=== PATIENT | female | born 1935 | race Caucasian/White ===

== ENCOUNTER → 2017-07-06 | Outpatient (CLI) | payer MEDICARE ==
[2017-07-06 16:43] LABS: Basophils % (A) 0 %; CH 31.6; CHCM 33.8; Eosinophils # (A) 0.4 k/uL (0-0.7); Eosinophils % (A) 5 %; HCT 45.1 % (34.0-46.0); HDW 2.91; HGB 15.3 gm/dL (11.4-16.0); Luc # (Auto) 0.13; Luc % (Auto) 2; Lymphocytes # (A) 2.5 k/uL (1.0-4.8); Lymphocytes % (A) 31 %; MCH 31.9 pg (25.0-35.0); MCV 94.1 fL (80.0-100.0); Mean Platelet Volume 7.2; Monocytes # (A) 0.4 k/uL (0-1.0); Monocytes % (A) 5 %; Neutrophils # (A) 4.8 k/uL (1.3-7.7); Neutrophils % (A) 58 %; RBC 4.79 m/uL (3.80-5.40); RDW 13.5 % (11.5-15.5); WBC 8.3 k/uL (3.8-10.6); WBC (Perox) 8.11
[2017-07-06 16:50] LABS: ALT 33 U/L (9-52); AST 24 U/L (14-36); Alkaline Phosphatase 88 U/L (38-126); Anion Gap 10 mmol/L; Blood Urea Nitrogen 29 mg/dL (7-17); Calcium 9.6 mg/dL (8.4-10.2); Carbon Dioxide 23 mmol/L (22-30); Chloride 105 mmol/L (98-107); Glucose 94 mg/dL (74-99); Non-African American GFR(MDRD) 53 (>60 ml/min/1.73 sqM); Sodium 138 mmol/L (137-145); Total Bilirubin 0.6 mg/dL (0.2-1.3); Total Protein 7.1 g/dL (6.3-8.2)
--- NOTE | 2017-07-06 21:08 | CT ---
EXAMINATION TYPE: CT chest w con DATE OF EXAM: 07/06/2017 COMPARISON: Chest radiograph dated 05/19/2015 HISTORY: Recent pneumonia. Abnormal cxr. CT DLP: 578.00 mGycm. Automated Exposure Control for Dose Reduction was Utilized. TECHNIQUE: CT scan of the thorax is performed following with IV Contrast, patient injected with 80 m L of Visipaque 320. FINDINGS: LUNGS: The lungs are grossly clear, there is no concerning parenchymal mass or nodule identified. T here is no pleural effusion or pneumothorax seen. The tracheobronchial tree is patent. No evidence o f ascending thoracic aortic aneurysm or descending thoracic aortic aneurysm. No evidence of pulmonary embolus. Minimal calcific atheromatous changes are seen of the thoracic aorta. Moderate centrilobular emphysematous changes are most pronounced at the lung apices. Scattered pleura l parenchymal linear scarring is seen as well as focal noncalcified right middle lobe pulmonary nodul e measuring 4 mm on series 4 image 34. MEDIASTINUM: There are no greater than 1 cm hilar or mediastin al lymph nodes. No pericardial effusion is seen. OTHER: Main pulmonary artery is mildly enlarged measuring up to 3.1 cm. Splenules are seen in adjacen t to the [place] spleen. Numerous low-density hepatic lesions are present, some of which are compatibl e with simple cysts, and others which are too small to accurately characterize. The largest of these is seen in segment 8 and measures 2.2 cm. Additionally there is a questionable area of hypoattenuation within the pancreatic uncinate process, partially visualized on the last image in the [id number] series 3 image 58. This appears to be flu id attenuated but is incompletely characterized. There is multilevel degenerative disc disease with numerous Schmorl's nodes of the thoracic spine and an exaggerated thoracic kyphosis. IMPRESSION: 1. No focal consolidation to suggest pneumonia. Moderate centrilobular emphysematous changes are appr eciated as well as multifocal pleural parenchymal scarring. 2. Solitary 3 mm solid pulmonary nodule. The Fleischner Society recommendations of 2017, consensus gu idelines recommend optional CT in 12 months for further evaluation. 3. Partially visualized pancreatic uncinate process lesion, which appears cystic but incompletely jessica racterized. Dynamic enhanced CT or MR (pancreatic mass protocol) is recommended for further character ization. 4. Numerous hepatic cysts and smaller lesions that are too small to accurately characterize.
== END | disposition home or self-care (01) ==
LOC: RADCTMAIN 15:57
PROVIDERS: ATTEND Family Medicine
DX: J43.2 Centrilobular emphysema (principal); R91.1 Solitary pulmonary nodule; I48.91 Unspecified atrial fibrillation; F33.1 Major depressive disorder, recurrent, moderate
CPT/HCPCS: 80053; 85025; 71260; 36415; Q9967

== ENCOUNTER → 2017-07-27 | Outpatient (CLI) | payer MEDICARE ==
[2017-07-27 09:04] LABS: Blood Urea Nitrogen 29 mg/dL (7-17); Non-African American GFR(MDRD) 53 (>60 ml/min/1.73 sqM)
--- NOTE | 2017-07-27 10:51 | CT ---
EXAMINATION TYPE: CT abdomen wo/w con DATE OF EXAM: 07/27/2017 COMPARISON: Correlation CT chest 07/06/2017 and ultrasound liver 07/23/2015 HISTORY: 82-year-old female with abnormal findings TECHNIQUE: Contiguous axial scanning of the abdomen and pelvis before and after administration of 100 ml Omnipaque 300 IV contrast. Coronal/sagittal reconstructions performed. CT DLP: 1258.60 mGycm Automated exposure control for dose reduction was used. FINDINGS: There is some type of technical error and the initial postcontrast series was performed very early. C ontrast is seen within the pulmonary vasculature and in the heart. The second postcontrast series whi ch was measured to be venous phase shows arterial opacification. Heart is upper limits of normal in size without pericardial effusion. Strandy areas of atelectasis an d/or scarring at the lung bases without pleural effusion. Redemonstrated multiple hypodense lesions within the liver, largest measuring 2.3 cm suggestive of cy sts. Some are too small for accurate CT characterization. Gallbladder, adrenal glands, and left kidney appear within normal limits. There is a 1.7 cm rounded a est[place] of fat density within the mid to lower pole right kidney that could represent an AML. Inferior sp lenules are present as well as a punctate calcification in the spleen that could represent a calcifie d granuloma. Confirmed is a 1.4 cm ovoid hypodense lesion in the pancreatic uncinate process. No obvious suspiciou s nodularity though there are technical limitations due to the presence of only the arterial postcont rast series. No dilated small bowel, free fluid, or free air. No mesenteric or retroperitoneal lymphadenopathy. Sc attered mild stool burden. Mild sigmoid diverticulosis. Bladder is urine distended. Uterus surgically absent. No abnormal fluid collection in the pelvis. Nei ther ovary is visualized. Bones: Degenerative changes at the pubic symphysis and mild degenerative changes at the hips. Additio nal degenerative changes mid to lower lumbar spine and within the lower thoracic spine as well. No os seous destructive process. IMPRESSION: 1. SOME TECHNICAL LIMITATIONS IN THE EXAM DUE TO THE PRESENCE OF NONCONTRAST AND ARTERIAL PHASE IMAGI NG ONLY. 2. A 1.4 CM HYPODENSE LESION IN THE UNCINATE PROCESS. SOME FAVORED DIFFERENTIAL CONSIDERATIONS INCLUD E A DILATED SIDE BRANCH RADICLE, SEQUELA OF PRIOR PANCREATITIS, AND an IPMN. RECOMMEND THREE-MONTH FO LLOW-UP PANCREAS MRI TO ASSESS STABILITY AND FOR FURTHER TISSUE CHARACTERIZATION. 3. A 1.7 CM FAT DENSITY LESION IN THE RIGHT KIDNEY COULD REPRESENT A BENIGN AML.
== END | disposition home or self-care (01) ==
LOC: RADCTMAIN 08:09
PROVIDERS: ATTEND Family Medicine
DX: N28.89 Other specified disorders of kidney and ureter (principal)
CPT/HCPCS: 82565; 84520; 74170; 36415; Q9967

== ENCOUNTER → 2017-07-28 | Outpatient (CLI) | payer MEDICARE | END | disposition home or self-care (01) | LOC: CPPFTMAIN 10:18 | PROVIDERS: ATTEND Family Medicine | DX: J98.8 Other specified respiratory disorders (principal) | CPT/HCPCS: 94060; 94726; 94729 ==

== ENCOUNTER → 2017-08-15 | Outpatient (CLI) | payer MEDICARE ==
[2017-08-15 11:55] LABS: Blood Urea Nitrogen 26 mg/dL (7-17); Non-African American GFR(MDRD) 52 (>60 ml/min/1.73 sqM)
--- NOTE | 2017-08-15 14:00 | MR ---
EXAMINATION TYPE: MR pancreas wo/w con DATE OF EXAM: 08/15/2017 COMPARISON: CT abdomen July 27, 2017 HISTORY: abnormal findings on ct CONTRAST: Standard multiplanar, multisequence MRI departmental protocol utilizing 7 mL intravenous Gadavist brittany olinium contrast. FINDINGS: PANCREAS: Pancreas is overall normal in size. Duct is visualized but not suspiciously dilated. Corres ponding to area of concern on CT, there is cluster of tiny cystic lesions seen best on coronal image 13 and axial series for one image 16 near the medial aspect of the uncinate process, largest lesion m easures 7 x 4 mm. It is difficult to determine if lesions are within or adjacent to pancreas. This is separate from the pancreatic duct. No additional worrisome solid or cystic masses seen. LIVER/GB/BILIARY SYSTEM: Liver is normal in size. There are lobulated otherwise simple appearing cyst s scattered throughout the liver. No worrisome solid or cystic mass or ductal dilatation is seen. Gal lbladder shows wall thickening upper limits of normal inferiorly otherwise is unremarkable. OTHER: Cardiomegaly is present. There is moderate biatrial dilatation seen. There is bibasilar linear scarring and/or atelectasis redemonstrated. The spleen and both adrenal glands are normal in size. There is prominent lobulated fat lesions centr ally in the right kidney favoring angiomyolipoma redemonstrated. There is no suspicious small or larg e bowel dilatation. There is no concerning abdominal fluid collection seen. No suspicious abdominal a denopathy is noted. There is S-shaped scoliotic curvature redemonstrated. IMPRESSION: Nonspecific cluster of tiny cystic lesions near medial aspect of uncinate process. The le ameena or lesions are of uncertain etiology, favored benign, differential includes pancreatic pseudocys t, side branch IPMN, an cystic pancreatic neoplasm. MRI imaging follow-up in 6-12 months time is advi sed to ensure stability.
== END | disposition home or self-care (01) ==
LOC: RADMRIMAIN 11:17
PROVIDERS: ATTEND Family Medicine
DX: K86.2 Cyst of pancreas (principal)
CPT/HCPCS: 82565; 84520; 74183; A9581

== ENCOUNTER → 2018-04-11 | Outpatient (CLI) | payer MEDICARE ==
--- NOTE | 2018-04-11 16:12 | MR ---
MR pancreas with and without contrast history: Pancreatic cyst, abnormal prior MRI Multiplanar multisequence and postcontrast images through the abdomen with attention to the pancreas following 17 cc Gadavist IV Correlation to prior MR pancreas 08/15/2017 The pancreas shows a similar appearance. Small cystic foci present within the uncinate process are ag ain noted and are multilocular. No abnormal enhancement following contrast. Multiple cystic foci agai n noted within the liver. The kidneys show a similar appearance. Gallbladder, adrenal glands, spleen are stable. There is no re troperitoneal adenopathy. IMPRESSION: Stable exam, no significant interval change.
== END | disposition home or self-care (01) ==
LOC: RADMRIMAIN 14:02
PROVIDERS: ATTEND Internal Medicine Gastroenterology
DX: K86.2 Cyst of pancreas (principal)
CPT/HCPCS: 82565; 84520; 74183; 36415; A9581

== ENCOUNTER → 2018-09-05 | Outpatient (CLI) | payer MEDICARE ==
--- NOTE | 2018-09-05 12:20 | XR ---
EXAMINATION TYPE: XR chest 2V DATE OF EXAM: 09/05/2018 COMPARISON: 05/19/2015 HISTORY: Shortness of breath for 4 months. TECHNIQUE: Frontal and lateral views of the chest are obtained. FINDINGS: There is no focal air space opacity, pleural effusion, or pneumothorax seen. There are si milar areas of multifocal platelike peripheral midlung atelectasis bilaterally or pleural parenchymal scarring in comparison to exam of 2014. The cardiac silhouette size is mildly enlarged. The osseou s structures are intact. There is generalized osseous demineralization. There is some pulmonary hyper inflation and flattening of the diaphragms on the lateral view suggesting a component of underlying e mphysema. IMPRESSION: No acute cardiopulmonary process. Chronic multifocal subsegmental atelectasis or pleural parenchymal scarring dating back to 2014. Radiographic findings suggesting mild underlying emphysema tous change.
[2018-09-05 12:35] LABS: Basophils % (A) 0 %; Eosinophils # (A) 0.2 k/uL (0-0.7); Eosinophils % (A) 3 %; HCT 42.7 % (34.0-46.0); HGB 13.6 gm/dL (11.4-16.0); Lymphocytes % (A) 12 %; MCH 30.1 pg (25.0-35.0); MCHC 31.8 g/dL (31.0-37.0); MCV 94.7 fL (80.0-100.0); Mean Platelet Volume 7.2; Monocytes # (A) 0.4 k/uL (0-1.0); Monocytes % (A) 5 %; Neutrophils # (A) 6.7 k/uL (1.3-7.7); Neutrophils % (A) 80 %; Platelet Count 234 k/uL (150-450); RBC 4.51 m/uL (3.80-5.40); RDW 13.7 % (11.5-15.5); WBC 8.3 k/uL (3.8-10.6)
[2018-09-05 16:15] LABS: Albumin/Globulin Ratio 1.74 (1.20-2.10); Anion Gap 7.6 mmol/L (4.00-12.00); Calcium 9.1 mg/dL (8.7-10.3); Carbon Dioxide 28.4 mmol/L (21.6-31.8); Globulin 2.3 g/dL (2.1-3.7); Potassium 4.4 mmol/L (3.5-5.5); Total Bilirubin 0.9 mg/dL (0.2-1.2); Total Protein 6.3 g/dL (6.2-8.2)
[2018-09-05 16:22] LABS: T4, Free (Free Thyroxine) 1.1 ng/dL (0.80-1.80)
== END | disposition home or self-care (01) ==
LOC: LABWHC1 10:31
PROVIDERS: ATTEND Family Medicine
DX: R06.02 Shortness of breath (principal); G47.09 Other insomnia; R53.83 Other fatigue
CPT/HCPCS: 36415; 71046; 80053; 84439; 84443; 85025

== ENCOUNTER → 2018-11-30 | Day surgery (SDC) | payer MEDICARE ==
[2018-11-28 12:01] VITALS: BMI 30.2
[~2018-11-30] MED LIST: SODIUM CHLORIDE 0.9% 1,000 ML IV ONE; SODIUM CHLORIDE 0.9% 1,000 ML IV SCH; fentaNYL (PF) 50 MCG/ML 2 ML AMP IVP ONE; fentaNYL (PF) 50 MCG/ML 2 ML AMP ONE
[2018-11-30 08:29] VITALS: RESP 18; TEMP 97.6
[2018-11-30] MEDS: BENZOCAINE SPRAY 1 CAN MUCOUS MEM ONE ×2 (08:50→08:55)
[2018-11-30] MEDS: MIDAZOLAM 2 MG/2 ML VIAL IVP ONE ×2 (08:58→09:02)
--- NOTE | 2018-11-30 09:44 | ECHOT ---
TRANSESOPHAGEAL ECHOCARDIOGRAM INDICATION: Valvular heart disease. After obtaining informed consent, transesophageal echocardiogram was performed in left lateral position using an Omni plane probe. Local and IV sedation were obtained using Xylocaine spray, intravenous Versed and fentanyl. Patient tolerated the procedure well without any obvious immediate complications. FINDINGS: 1. Aortic valve is a 3-leaflet valve that appears heavily calcified and shows severe restriction in leaflet mobility. The valve area is around 0.6-0.83 cm. 2. Mitral valve appears anatomically normal. There is moderate central mitral regurgitation noted. Tricuspid valve shows mild to moderate tricuspid regurgitation. Left atrium, right atrium, right ventricle appear enlarged. Left ventricle has normal size, shows diffuse global hypokinesis with LV systolic dysfunction with an ejection fraction of around 45%. Interatrial septum, there is no evidence of [id number] shunt by color-flow Doppler or [id number] shunt by agitated saline contrast study. Aorta shows mild to moderate atherosclerotic changes. CONCLUSION: 1. Severe aortic stenosis involving a heavily calcified 3-leaflet valve that shows severe restriction in leaflet mobility. 2. Moderate mitral regurgitation. 3. Severe pulmonary hypertension. PLAN: I talked to patient's about undergoing aortic valve replacement probably by TAVR. They are going to think over this and get back to me. MMODL / IJN: [id number] /
[2018-11-30 12:14] VITALS: BP 145/78; PULSE 58
== END | disposition home or self-care (01) ==
LOC: CATHCVL 07:50
PROVIDERS: ATTEND Internal Medicine Cardiovascular Disease
DX: I08.0 Rheumatic disorders of both mitral and aortic valves (principal); I27.20 Pulmonary hypertension, unspecified; I70.0 Atherosclerosis of aorta; I48.3 Typical atrial flutter; I10 Essential (primary) hypertension; Z82.49 Family history of ischemic heart disease and other diseases of the circulatory system; Z72.0 Tobacco use; Z88.5 Allergy status to narcotic agent; Z88.3 Allergy status to other anti-infective agents; Z88.0 Allergy status to penicillin; Z88.2 Allergy status to sulfonamides; Z79.01 Long term (current) use of anticoagulants; Z79.82 Long term (current) use of aspirin; Z79.899 Other long term (current) drug therapy
CPT/HCPCS: 93312; 93325; J2250; J3010; 93320

== ENCOUNTER → 2018-12-27 | Day surgery (SDC) | payer MEDICARE ==
[~2018-12-27] MED LIST changes: +ALPRAZolam 0.25 MG TAB PO ONE; +ALPRAZolam 0.25 MG TAB PO PRN; +ALPRAZolam 0.5 MG TAB PO PRN; +ASPIRIN 325 MG TAB PO STA; +ATORVASTATIN 80 MG TAB PO STA; +IOPAMIDOL-370 100ML BTL INJ ONE; +LIDOCAINE 1% INJ 10MG/ML (20 ML MDV) ONE; +LIDOCAINE 1% INJ 10MG/ML (20 ML MDV) SQ ONE; +METOPROLOL TARTRATE 25 MG TAB PO SCH; +METOPROLOL TARTRATE 5 MG/5 ML VIAL IVP ONE; +MIDAZOLAM 2 MG/2 ML VIAL IVP ONE; +NITROGLYCERIN SL TABS 0.4 MG TAB SUBLINGUAL PRN; +RX INFO: IV CONTRAST WAS GIVEN 1 EACH MISC MISCELLANE PRN; +SODIUM CHLORIDE 0.9% 1,000 ML in EMPTY BAG 1 BAG IV ONE
[2018-12-27 08:42] LABS: Basophils % (A) 0 %; Eosinophils # (A) 0.3 k/uL (0-0.7); Eosinophils % (A) 5 %; HCT 44.4 % (34.0-46.0); HGB 14.6 gm/dL (11.4-16.0); Lymphocytes # (A) 1.8 k/uL (1.0-4.8); Lymphocytes % (A) 25 %; MCH 30.2 pg (25.0-35.0); MCHC 32.9 g/dL (31.0-37.0); MCV 91.6 fL (80.0-100.0); Mean Platelet Volume 6.4; Monocytes # (A) 0.4 k/uL (0-1.0); Monocytes % (A) 6 %; Neutrophils # (A) 4.6 k/uL (1.3-7.7); Neutrophils % (A) 64 %; Platelet Count 222 k/uL (150-450); RBC 4.84 m/uL (3.80-5.40); RDW 13.7 % (11.5-15.5); WBC 7.3 k/uL (3.8-10.6)
[2018-12-27 08:53] LABS: Calcium 9.1 mg/dL (8.4-10.2); Potassium 4.9 mmol/L (3.5-5.1)
[2018-12-27 08:56] VITALS: BP 204/112; PULSE 106; RESP 15; TEMP 97.4
--- NOTE | 2018-12-27 11:40 | CC ---
CARDIAC CATHETERIZATION REPORT INDICATION: Aortic stenosis. PROCEDURE NOTE: After obtaining informed consent, left heart catheterization and coronary angiogram were performed via the right femoral artery using standard Randell catheters. Patient tolerated the procedure well without any obvious immediate complication. A femoral angiogram was performed and Angio-Seal was deployed for hemostasis. Patient's blood pressure was somewhat elevated prior to the cath and she received metoprolol 25 mg IV. I will increase the dose of her metoprolol from 25 b.i.d. to 25 t.i.d. on discharge, given the elevated heart rate and elevated blood pressures. Patient received moderate conscious sedation. Total sedation time was 19 minutes. FINDINGS: HEMODYNAMICS: Left ventricular end-diastolic pressure is 18-20 mm. There is a gradient of 45 mm across the valve consistent with severe aortic stenosis. ANGIOGRAPHIC DATA: LEFT MAIN CORONARY ARTERY: Left main coronary artery is a very short vessel. Divides into left anterior descending coronary artery and circumflex coronary artery. LAD and its branches show mild nonobstructive coronary artery disease. Circumflex coronary artery is a large dominant vessel and is free of significant disease. Right coronary artery is a small nondominant vessel and has mild disease. CONCLUSIONS: 1. Left dominant circulation. 2. No evidence of significant obstructive coronary artery disease.. 3. Severe aortic stenosis with a gradient across the aortic valve of about 45 mm. PLAN: I will refer the patient for TAVR. MICHAEL / FANNYN: [id number] /
--- NOTE | 2018-12-27 11:46 | LTR ---
DATE OF SERVICE: 12/27/2018 RE: Mari Arboleda Dear Antwon; I performed cardiac catheterization on Mari Arboleda. A detailed catheterization note is sent to you. Cardiac catheterization revealed severe aortic stenosis with mild nonobstructive coronary artery disease. The patient will be referred for aortic valve replacement. Sincerely, MD MICHAEL Caceres / TOOTIE: [id number] /
== END ==
LOC: CATHCVL 07:49
PROVIDERS: ATTEND Internal Medicine Cardiovascular Disease
DX: I08.0 Rheumatic disorders of both mitral and aortic valves (principal); I25.10 Atherosclerotic heart disease of native coronary artery without angina pectoris; I48.3 Typical atrial flutter; I27.20 Pulmonary hypertension, unspecified; I10 Essential (primary) hypertension; J44.9 Chronic obstructive pulmonary disease, unspecified; M19.90 Unspecified osteoarthritis, unspecified site; Z79.01 Long term (current) use of anticoagulants; Z79.82 Long term (current) use of aspirin; Z79.51 Long term (current) use of inhaled steroids; Z79.899 Other long term (current) drug therapy; Z88.6 Allergy status to analgesic agent; Z88.1 Allergy status to other antibiotic agents; Z88.0 Allergy status to penicillin; Z88.2 Allergy status to sulfonamides; Z82.49 Family history of ischemic heart disease and other diseases of the circulatory system; Z87.891 Personal history of nicotine dependence
CPT/HCPCS: 93458; 80048; 85025; C1760; C1894; C1769; J2250; J2001; J3010; Q9967

== ENCOUNTER → 2019-01-16 | Outpatient (CLI) | payer MEDICARE ==
[2019-01-16 10:27] LABS: Basophils % (A) 1 %; Eosinophils # (A) 0.4 k/uL (0-0.7); Eosinophils % (A) 7 %; HCT 44.1 % (34.0-46.0); HGB 14.1 gm/dL (11.4-16.0); Lymphocytes # (A) 1.2 k/uL (1.0-4.8); Lymphocytes % (A) 21 %; MCHC 32.1 g/dL (31.0-37.0); MCV 93.6 fL (80.0-100.0); Mean Platelet Volume 6.3; Monocytes # (A) 0.3 k/uL (0-1.0); Monocytes % (A) 6 %; Neutrophils # (A) 3.5 k/uL (1.3-7.7); Neutrophils % (A) 64 %; Platelet Count 244 k/uL (150-450); RBC 4.71 m/uL (3.80-5.40); RDW 13.4 % (11.5-15.5); WBC 5.5 k/uL (3.8-10.6)
[2019-01-16 10:32] LABS: INR 1.2 (<1.2); Prothrombin Time 12.4 sec (9.0-12.0)
[2019-01-16 10:38] LABS: Appearance,Urine Clear (Clear); Bilirubin,Urine Negative (Negative); Blood,Urine Negative (Negative); Color,Urine Light Yellow; Glucose,Urine (UA) Negative (Negative); Ketones,Urine Negative (Negative); Leukocyte Esterase,Urine Small (Negative); Mucus,Urine Rare /hpf; Nitrite,Urine Negative (Negative); Protein,Urine Negative (Negative); Specific Gravity,Urine 1.008 (1.001-1.035); Squamous Epithelial Cell,Urine <1 /hpf (0-4); Urobilinogen,Urine <2.0 mg/dL (<2.0); WBC,Urine 3 /hpf (0-5)
[2019-01-16 17:40] LABS: Albumin 4.1 g/dL (3.80-4.90); Albumin/Globulin Ratio 1.64 (1.60-3.17); Anion Gap 5.6 mmol/L (4.00-12.00); Calcium 9.5 mg/dL (8.7-10.3); Carbon Dioxide 28.4 mmol/L (21.6-31.8); Globulin 2.5 g/dL (1.6-3.3); Magnesium 1.9 mg/dL (1.5-2.4); Potassium 4.8 mmol/L (3.5-5.5); Total Bilirubin 0.6 mg/dL (0.3-1.2); Total Protein 6.6 g/dL (6.2-8.2)
== END | disposition home or self-care (01) ==
LOC: LABWHC1 09:50
PROVIDERS: ATTEND Emergency Medicine
DX: I35.0 Nonrheumatic aortic (valve) stenosis (principal); I51.9 Heart disease, unspecified
CPT/HCPCS: 36415; 80053; 81001; 83735; 83880; 85025; 85610

== ENCOUNTER → 2019-06-16 | Outpatient (CLI) | payer MEDICARE ==
--- NOTE | 2019-06-17 22:11 | MR ---
EXAMINATION TYPE: MR pancreas wo/w con DATE OF EXAM: 06/16/2019 COMPARISON: MRI pancreas April 11, 2018 and older study August 15, 2017. CT abdomen July 27, 2017 HISTORY: Cyst of pancreas CONTRAST: Standard multiplanar, multisequence MRI departmental protocol utilizing 7 mL intravenous Gadavist brittany olinium contrast. FINDINGS: Pancreas: Pancreas remains normal in size with cluster of tiny cystic foci seen best coronal image 15 , less well seen on axial images no significant change from recent MRI coronal image 16 stable or les s prominent from older MRI. No suspicious nodularity or enhancement. There is persistent visualizatio n of pancreatic duct unchanged in appearance from prior. No new suspicious masses are evident. Other: Multiple thin-walled cysts are redemonstrated scattered throughout the liver. The gallbladder, spleen, and both adrenal glands remain within normal limits. There is simple appearing thin-walled c yst mid to lower pole of the right kidney axial image 10 redemonstrated without stable. No suspicious bowel dilatation. No concerning abdominal fluid collection or adenopathy. Slight S-shaped scoliotic curvature to the spine with multilevel spurring is redemonstrated. Incidental long cystic duct redemo nstrated. IMPRESSION: Stable nonspecific cluster of tiny cystic lesions medial aspect of uncinate process. Diff erential includes sidebranch IPMN and cystic pancreatic neoplasm. Benign etiology strongly favored gi lalita nearly two-year stability.
== END | disposition home or self-care (01) ==
LOC: RADMRIMAIN 08:27
PROVIDERS: ATTEND Internal Medicine Gastroenterology
DX: K86.2 Cyst of pancreas (principal)
CPT/HCPCS: 74183; A9585

== ENCOUNTER → 2021-05-08 | Outpatient (CLI) | payer MEDICARE ==
--- NOTE | 2021-05-08 12:09 | CT ---
EXAMINATION TYPE: CT brain wo con DATE OF EXAM: 05/08/2021 COMPARISON: None INDICATION: Pt c/o severe head pain for about an hour and a half DLP: 1106 mGycm, Automated exposure control for dose reduction was used. CONTRAST: None CT of the brain is performed utilizing 3 mm thick sections through the posterior fossa and 3 mm thick sections through the remaining calvarium. Study is performed within 24 hours of [facility] to the [facility]. No abnormal hyperdensity is present to suggest an acute intracranial hemorrhage. No mass lesion is evident. Physiologic basal ganglion calcification is present. No acute infarcts are evident. There is mild periventricular white matter hypodensity, likely on the basis of chronic white matter ischemic changes Ventricles and sulci are prominent for the patient age. There may be some diffuse prominence of the basilar artery. Because thickening is within the right maxillary sinus. Remaining paranasal sinuses and mastoid air c ells are clear. IMPRESSIONS: 1. Age-related atrophy with chronic appearing periventricular white matter ischemic changes.
== END | disposition home or self-care (01) ==
LOC: RADCTMAIN 11:04
PROVIDERS: ATTEND Family Medicine
DX: I67.82 Cerebral ischemia (principal)
CPT/HCPCS: 70450

== ENCOUNTER 2024-02-02 14:59 | Inpatient (IN) | payer MEDICARE ==
--- NOTE | 2024-02-02 15:34 | ED ---
General Adult HPI - General Chief complaint: GI Bleed Stated complaint: rectal bleeding Time Seen by Provider: 02/02/24 15:15 Source: patient, RN notes reviewed, old records reviewed Mode of arrival: ambulatory Limitations: no limitations - History of Present Illness Initial comments: This is an 88-year-old female who presents to the emergency department stating on Tuesday she felt just fine and on Tuesday she started feeling very weak and tired and started having black stools. Patient states she is on Eliquis because she has a valve replacement. Patient states the tiredness continues she saw her doctor today and her doctor sent her in to be evaluated. Patient states she continues to have black stools. Patient denies any abdominal pain patient Nu[place] any back pain patient is chest pain. Patient states she does feel little short of breath and feels more fatigued than normal. - Related Data Home Medications Medication Instructions Recorded Confirmed Aspirin 81 mg PO HS 05/21/15 02/02/24 Apixaban [Eliquis] 5 mg PO BID 02/02/24 02/02/24 Immunity Probiotic 1 tab PO DAILY 02/02/24 02/02/24 Metoprolol Tartrate [Lopressor] 25 mg PO BID 02/02/24 02/02/24 Multivitamins, Thera [Multivitamin 1 tab PO DAILY 02/02/24 02/02/24 (formulary)] Propylene Glycol [Systane Complete] 1 drop BOTH EYES HS 02/02/24 02/02/24 Vitamin B-12 (Unknown Strength) 1 dose PO HS 02/02/24 02/02/24 Allergies Allergy/AdvReac Type Severity Reaction Status Date / Time doxycycline Allergy Severe tongue Verified 02/02/24 18:06 swelling and SOB alatrofloxacin mesylate Allergy Rash/Hives Verified 02/02/24 18:06 [From Trovan] clarithromycin [From Biaxin] Allergy genital Verified 02/02/24 18:06 swelling and irritation codeine Allergy Rash/Hives Verified 02/02/24 18:06 etodolac Allergy Unknown Verified 02/02/24 18:06 gatifloxacin [From Tequin] Allergy Rash/Hives Verified 02/02/24 18:06 levofloxacin [From Levaquin] Allergy Rash/Hives Verified 02/02/24 18:06 Penicillins Allergy Rash/Hives Verified 02/02/24 18:06 Sulfa (Sulfonamide Allergy "very high Verified 02/02/24 18:06 Antibiotics) fever" trovafloxacin mesylate Allergy Rash/Hives Verified 02/02/24 18:06 [From Michael] Review of Systems ROS Statement: Those systems with pertinent positive or pertinent negative responses have been documented in the HPI. ROS Other: All systems not noted in ROS Statement are negative. Past Medical History Past Medical History: Cancer Additional Past Medical History / Comment(s): CURRENT:shortness of breath with activity. SEE DR. [facility]ALL'S H & P FOR CARDIOVASCULAR HSX. 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, glaucoma rt eye, colitis, shingles, skin cancer History of Any Multi-Drug Resistant Organisms: None Reported Past Surgical History: Back Surgery, Orthopedic Surgery Additional Past Surgical History / Comment(s): SX: rt eye retinal repair and laser surgery for glaucoma, rt foot spur sx, rt elbow, and lety thumb surgeries, neck surgery to remove salivary gland, laminectomy(lumbar) Past Anesthesia/Blood Transfusion Reactions: No Reported Reaction Past Psychological History: No Psychological Hx Reported Past Alcohol Use History: Rare Past Drug Use History: None Reported - Past Family History Mother Family Medical History: Cancer General Exam - General Exam Comments Initial Comments: GENERAL: Patient is well-developed and well-nourished. Patient is nontoxic and well- hydrated and is in no acute distress. ENT: Neck is soft and supple. No significant lymphadenopathy is noted. Oropharynx is clear. Moist mucous membranes. Neck has full range of motion without eliciting any pain. EYES: The sclera were anicteric and conjunctiva were pink and moist. Extraocular movements were intact and pupils were equal round and reactive to light. Eyelids were unremarkable. PULMONARY: Unlabored respirations. Good breath sounds bilaterally. No audible rales rhonchi or wheezing was noted. CARDIOVASCULAR: There is a regular rate and rhythm without any murmurs gallops or rubs. ABDOMEN: Soft and nontender with normal bowel sounds. SKIN: Skin is clear with no lesions or rashes and otherwise unremarkable. NEUROLOGIC: Patient is alert and oriented x3. Cranial nerves II through XII are grossly intact. Motor and sensory are also intact. Normal speech, volume and content. Symmetrical smile. MUSCULOSKELETAL: Normal extremities with adequate strength and full range of motion. No lower extremity swelling or edema. No calf tenderness. LYMPHATICS: No significant lymphadenopathy is noted PSYCHIATRIC: Normal psychiatric evaluation. Limitations: no limitations Course Vital Signs 02/02/24 15:05 Temperature 97.4 F L Pulse Rate 59 L Respiratory 16 Rate Blood Pressure 154/105 O2 Sat by Pulse 100 Oximetry Medical Decision Making - Medical Decision Making Was pt. sent in by a medical professional or institution (, GRADY, CURBSTONE SETTER, urgent care, hospital, or senior care...) When possible be specific @ -Patient was sent in by the primary medical care doctor Did you speak to anyone other than the patient for history (EMS, parent, family, police, friend...)? What history was obtained from this source @ -Son gave quite a bit of the history Did you review nursing and triage notes (agree or disagree)? Why? @ -I reviewed and agree with nursing and triage notes Were old charts reviewed (outside hosp., previous admission, EMS record, old EKG, old radiological studies, urgent care reports/EKG's, senior care records)? Report findings @ -I reviewed prior charts and prior lab work on this patient Differential Diagnosis (chest pain, altered mental status, abdominal pain women, abdominal pain men, vaginal bleeding, weakness, fever, dyspnea, syncope, headache, dizziness, GI bleed, back pain, seizure, CVA, palpatations, mental health, musculoskeletal)? @ -Differential GI Bleed: Esophageal varices, aortoenteric fistula, Lauren-Chapa, gastritis, peptic ulcer disease, diverticulosis, inflammatory bowel disease, hemorrhoids, fissure, colitis, malignancy, Meckels diverticulum, this is not meant to be an all- inclusive list. EKG interpreted by me (3pts min.). @ -As above X-rays interpreted by me (1pt min.). @ -Chest x-ray showed no acute abnormality CT interpreted by me (1pt min.). @ -None done U/S interpreted by me (1pt. min.). @ -None done What testing was considered but not performed or refused? (CT, X-rays, U/S, labs)? Why? @ -None What meds were considered but not given or refused? Why? @ -None Did you discuss the management of the patient with other professionals (professionals i.e. , GRADY, CURBSTONE SETTER, lab, RT, psych nurse, high school social studies tutor, supervisor fruit grading, teacher, gifts officer, case management assistant)? Give summary @ -I spoke with Dr. John he agreed to admit the patient admitted the patient I wrote admitting orders Was smoking cessation discussed for >3mins.? @ -No Was critical care preformed (if so, how long)? @ -No Were there social determinants of health that impacted care today? How? (Homelessness, low income, unemployed, alcoholism, drug addiction, transportation, low edu. Level, literacy, decrease access to med. care, halfway, rehab)? @ -No Was there de-escalation of care discussed even if they declined (Discuss DNR or withdrawal of care, Hospice)? DNR status @ -No What co-morbidities impacted this encounter? (DM, HTN, Smoking, COPD, CAD, Cancer, CVA, ARF, Chemo, Hep., AIDS, mental health diagnosis, sleep apnea, morbid obesity)? @ -None Was patient admitted / discharged? Hospital course, mention meds given and route, prescriptions, significant lab abnormalities, going to OR and other pertinent info. @ -Patient's hemoglobin was 8.7 which was considerably lower than it had been in the past. I will repeat CBCs when patient is admitted. I spoke with Dr. John he agreed to admit the patient. Patient also was somewhat dehydrated so I did give the patient some IV fluids. Patient's troponin was mildly elevated so I tracked troponin on the patient. Undiagnosed new problem with uncertain prognosis? @ -No Drug Therapy requiring intensive monitoring for toxicity (Heparin, Nitro, Insulin, Cardizem)? @ -No Were any procedures done? @ -No Diagnosis/symptom? @ -GI bleed Acute, or Chronic, or Acute on Chronic? @ -Acute Uncomplicated (without systemic symptoms) or Complicated (systemic symptoms)? @ -Complicated Side effects of treatment? @ -No Exacerbation, Progression, or Severe Exacerbation? @ -No Poses a threat to life or bodily function? How? (Chest pain, [place], [place], pneumonia, PE, COPD, DKA, ARF, appy, cholecystitis, CVA, Diverticulitis, Homicidal, Suicidal, threat to staff... and all critical care pts) @ -Yes this could lead to severe anemia and hypoxia and endorgan dysfunction Diagnosis/symptom? @ -Elevated troponin Acute, or Chronic, or Acute on Chronic? @ -Acute Uncomplicated (without systemic symptoms) or Complicated (systemic symptoms)? @ -Complicated Side effects of treatment? @ -None Exacerbation, Progression, or Severe Exacerbation] @ -No Poses a threat to life or bodily function? @ -Yes this could lead to an [place] and endorgan dysfunction Diagnosis/symptom? @ -Mild dehydration Acute, or Chronic, or Acute on Chronic? @ -Acute Uncomplicated (without systemic symptoms) or Complicated (systemic symptoms)? @ -Uncomplicated Side effects of treatment? @ -None Exacerbation, Progression, or Severe Exacerbation] @ -No Poses a threat to life or bodily function? @ -No Diagnosis/symptom? @ -Anemia Acute, or Chronic, or Acute on Chronic? @ -Acute Uncomplicated (without systemic symptoms) or Complicated (systemic symptoms)? @ -Complicated Side effects of treatment? @ -None Exacerbation, Progression, or Severe Exacerbation] @ -No Poses a threat to life or bodily function? @ -Yes this can lead to hypoxia and endorgan dysfunction - Lab Data Result diagrams: 02/02/24 15:40 02/02/24 15:40 Lab Results 02/02/24 02/02/24 02/02/24 Range/Units 15:40 15:40 15:40 WBC 9.2 (3.8-10.6) k/uL RBC 2.84 L (3.80-5.40) m/uL Hgb 8.7 L (11.4-16.0) gm/dL Hct 27.1 L (34.0-46.0) % MCV 95.3 (80.0-100.0) fL MCH 30.7 (25.0-35.0) pg MCHC 32.2 (31.0-37.0) g/dL RDW 14.0 (11.5-15.5) % Plt Count 210 (150-450) k/uL MPV 8.1 Neutrophils % 73 % Lymphocytes % 22 % Monocytes % 3 % Eosinophils % 1 % Basophils % 0 % Neutrophils # 6.7 (1.3-7.7) k/uL Lymphocytes # 2.0 (1.0-4.8) k/uL Monocytes # 0.3 (0-1.0) k/uL Eosinophils # 0.1 (0-0.7) k/uL Basophils # 0.0 (0-0.2) k/uL PT 12.4 (10.0-12.5) sec INR 1.2 H (<1.2) APTT 24.8 (22.0-30.0) sec Sodium 142 (137-145) mmol/L Potassium 4.5 (3.5-5.1) mmol/L Chloride 113 H (98-107) mmol/L Carbon Dioxide 18 L (22-30) mmol/L Anion Gap 11 mmol/L BUN 53 H (7-17) mg/dL Creatinine 0.88 (0.52-1.04) mg/dL Est GFR (CKD-EPI)AfAm 68 (>60 ml/min/1.73 sqM) Est GFR (CKD-EPI)NonAf 59 (>60 ml/min/1.73 sqM) Glucose 106 H (74-99) mg/dL Plasma Lactic Acid Enrique (0.7-2.0) mmol/L Calcium 9.3 (8.4-10.2) mg/dL Magnesium 2.1 (1.6-2.3) mg/dL Total Bilirubin 0.8 (0.2-1.3) mg/dL AST 42 H (14-36) U/L ALT 19 (4-34) U/L Alkaline Phosphatase 56 (38-126) U/L Troponin I (0.000-0.034) ng/mL NT-Pro-B Natriuret Pep 2350 pg/mL Total Protein 7.0 (6.3-8.2) g/dL Albumin 4.3 (3.5-5.0) g/dL Blood Type Blood Type Recheck Bld Type Recheck Status Antibody Screen Spec Expiration Date 02/02/24 02/02/24 02/02/24 Range/Units 15:40 15:40 16:41 WBC (3.8-10.6) k/uL RBC (3.80-5.40) m/uL Hgb (11.4-16.0) gm/dL Hct (34.0-46.0) % MCV (80.0-100.0) fL MCH (25.0-35.0) pg MCHC (31.0-37.0) g/dL RDW (11.5-15.5) % Plt Count (150-450) k/uL MPV Neutrophils % % Lymphocytes % % Monocytes % % Eosinophils % % Basophils % % Neutrophils # (1.3-7.7) k/uL Lymphocytes # (1.0-4.8) k/uL Monocytes # (0-1.0) k/uL Eosinophils # (0-0.7) k/uL Basophils # (0-0.2) k/uL PT (10.0-12.5) sec INR (<1.2) APTT (22.0-30.0) sec Sodium (137-145) mmol/L Potassium (3.5-5.1) mmol/L Chloride (98-107) mmol/L Carbon Dioxide (22-30) mmol/L Anion Gap mmol/L BUN (7-17) mg/dL Creatinine (0.52-1.04) mg/dL Est GFR (CKD-EPI)AfAm (>60 ml/min/1.73 sqM) Est GFR (CKD-EPI)NonAf (>60 ml/min/1.73 sqM) Glucose (74-99) mg/dL Plasma Lactic Acid Enrique 3.2 H* (0.7-2.0) mmol/L Calcium (8.4-10.2) mg/dL Magnesium (1.6-2.3) mg/dL Total Bilirubin (0.2-1.3) mg/dL AST (14-36) U/L ALT (4-34) U/L Alkaline Phosphatase (38-126) U/L Troponin I 0.097 H* (0.000-0.034) ng/mL NT-Pro-B Natriuret Pep pg/mL Total Protein (6.3-8.2) g/dL Albumin (3.5-5.0) g/dL Blood Type O Positive Blood Type Recheck O Pos Bld Type Recheck Status No Antibody Screen NEGATIVE Spec Expiration Date 02/05/20242340 Disposition Clinical Impression: GI bleed, Dehydration, Elevated troponin, Anemia Disposition: ADMITTED IP TO THIS [facility] Referrals: Antwon Olson MD [Primary Care Provider] - 1-2 days
[2024-02-02 15:58] LABS: Basophils % (A) 0 %; Eosinophils # (A) 0.1 k/uL (0-0.7); Eosinophils % (A) 1 %; HCT 27.1 % (34.0-46.0); HGB 8.7 gm/dL (11.4-16.0); Lymphocytes % (A) 22 %; MCH 30.7 pg (25.0-35.0); MCHC 32.2 g/dL (31.0-37.0); MCV 95.3 fL (80.0-100.0); Mean Platelet Volume 8.1; Monocytes # (A) 0.3 k/uL (0-1.0); Monocytes % (A) 3 %; Neutrophils # (A) 6.7 k/uL (1.3-7.7); Neutrophils % (A) 73 %; Platelet Count 210 k/uL (150-450); RBC 2.84 m/uL (3.80-5.40); WBC 9.2 k/uL (3.8-10.6)
[2024-02-02 16:21] LABS: ALT 19 U/L (4-34); African American GFR (CKD) 68 (>60 ml/min/1.73 sqM); Albumin 4.3 g/dL (3.5-5.0); Anion Gap 11 mmol/L; Blood Urea Nitrogen 53 mg/dL (7-17); Calcium 9.3 mg/dL (8.4-10.2); Carbon Dioxide 18 mmol/L (22-30); Chloride 113 mmol/L (98-107); Glucose 106 mg/dL (74-99); Non-African American GFR(CKD) 59 (>60 ml/min/1.73 sqM); Sodium 142 mmol/L (137-145); Total Bilirubin 0.8 mg/dL (0.2-1.3)
[2024-02-02 16:22] LABS: INR 1.2 (<1.2); Partial Thromboplastin Time 24.8 sec (22.0-30.0); Prothrombin Time 12.4 sec (10.0-12.5)
[2024-02-02 16:31] LABS: NT-Pro-B-Type Natriuretic Pept 2350 pg/mL
[2024-02-02 16:39] LABS: AST 42 U/L (14-36); Alkaline Phosphatase 56 U/L (38-126); Magnesium 2.1 mg/dL (1.6-2.3); Potassium 4.5 mmol/L (3.5-5.1)
--- NOTE | 2024-02-02 16:45 | XR ---
EXAMINATION: XR chest 2V: 02/02/2024 4:12 PM CLINICAL INDICATION: pain TECHNIQUE: Departmental protocol COMPARISON: 09/05/2018 FINDINGS: The overlying soft tissues are prominent. There are some nonspecific scattered linear shadows but no definite acute pulmonary process. The pleural spaces are negative. The cardiac silhouette appears mildly enlarged, unchanged. Since the prior study TAVR has been placed . The skeletal structures and soft tissues are negative for acute findings. IMPRESSION: No definite acute radiographic process.
[2024-02-02] MEDS: SODIUM CHLORIDE 0.9% 1,000 ML IV ONE (19:08)
[2024-02-02 19:41] LABS: Basophils % (A) 0 %; Eosinophils # (A) 0.1 k/uL (0-0.7); Eosinophils % (A) 2 %; HCT 25.7 % (34.0-46.0); HGB 8.4 gm/dL (11.4-16.0); Lymphocytes # (A) 1.8 k/uL (1.0-4.8); Lymphocytes % (A) 25 %; MCH 30.9 pg (25.0-35.0); MCHC 32.6 g/dL (31.0-37.0); MCV 94.9 fL (80.0-100.0); Mean Platelet Volume 8.4; Monocytes # (A) 0.3 k/uL (0-1.0); Monocytes % (A) 4 %; Neutrophils # (A) 4.9 k/uL (1.3-7.7); Neutrophils % (A) 68 %; Platelet Count 187 k/uL (150-450); RBC 2.71 m/uL (3.80-5.40); RDW 14.1 % (11.5-15.5); WBC 7.2 k/uL (3.8-10.6)
[2024-02-03 02:56] LABS: Basophils % (A) 0 %; Eosinophils # (A) 0.1 k/uL (0-0.7); Eosinophils % (A) 2 %; HCT 22.7 % (34.0-46.0); HGB 7.3 gm/dL (11.4-16.0); Lymphocytes # (A) 1.8 k/uL (1.0-4.8); Lymphocytes % (A) 30 %; MCH 30.8 pg (25.0-35.0); MCHC 32.1 g/dL (31.0-37.0); MCV 96.2 fL (80.0-100.0); Mean Platelet Volume 9.3; Monocytes # (A) 0.3 k/uL (0-1.0); Monocytes % (A) 5 %; Neutrophils # (A) 3.7 k/uL (1.3-7.7); Neutrophils % (A) 62 %; Platelet Count 161 k/uL (150-450); RBC 2.36 m/uL (3.80-5.40); RDW 14.2 % (11.5-15.5)
--- NOTE | 2024-02-03 11:42 | P.CRDCN ---
History of Present Illness History of present illness: HISTORY OF PRESENT ILLNESS: This is a 88-year-old female with a past medical history significant for valvular heart disease with previous TAVR, atrial fibrillation, nonischemic cardiomyopathy, pulmonary hypertension and hypertension. Patient follows in the office with Dr. Covington. We have been asked to see the patient in consultation for elevated troponins. Patient examined at the bedside. Patient has been having black stools for 2 days. She is anticoagulated on an outpatient basis with Eliquis. Also was prescribed a baby aspirin on an outpatient basis. She denies any abdominal pain at the time of examination. She does report having some epigastric pain prior to coming to the hospital which was relieved by rubbing her abdomen. She denies any history of ulcers in the past. She does report she has been taking Motrin PM at night recently to help her sleep. DIAGNOSTICS: - EKG reveals atrial fibrillation with controlled ventricular rate. - Chest xray negative for acute process - Laboratory data: WBC 6.0. Hemoglobin 7.6. Platelet count 161. Sodium 142. Potassium 4.5. BUN 53. Creatinine 0.88. Lactic acid 3.2. Repeat 1.4. proBNP 2350. Troponin 0.0697. 0.112. 0.086. - Current home cardiac medications include Eliquis 5 mg twice a day, aspirin 81 mg daily, metoprolol tartrate 25 mg twice a day - Cardiac catheterization history: obtained in December 2018 revealing normal coronary arteries - Most recent echocardiogram in November 2023 revealing ejection fraction 45%, moderate TR, moderate pulmonary hypertension, moderate to severe MR, and prosthetic aortic valve REVIEW OF SYSTEMS: At the time of my exam: CONSTITUTIONAL: Denies fever or chills. HEENT: Denies blurred vision, vision changes, or eye pain. Denies hemoptysis CARDIOVASCULAR: Denies chest pain. Denies orthopnea. Denies PND. Denies palpitations RESPIRATORY: Denies shortness of breath. GASTROINTESTINAL: Denies abdominal pain. Denies nausea or vomiting. HEMATOLOGIC: Denies bleeding disorders. GENITOURINARY: Denies any blood in urine. SKIN: Denies pruitis. Denies rash. PHYSICAL EXAM: VITAL SIGNS: Reviewed. GENERAL: Well-developed in no acute distress. HEENT: Head is normocephalic. Pupils are equal, round. Sclerae anicteric. Mucous membranes of the mouth are moist. Neck supple. No JVD or thyromegaly LUNGS: Respirations even and unlabored. Lungs essentially clear to auscultation bilaterally. HEART: Irregular rate and rhythm. S1 and S2 heard. ABDOMEN: Soft. Nondistended. Nontender. EXTREMITIES: Normal range of motion. No clubbing or cyanosis. Peripheral pulses intact. No lower extremity edema NEUROLOGIC: Awake and alert. Oriented x 3. ASSESSMENT: Generalized weakness Melena, suspected upper GI bleed Elevated troponins, likely type II VT secondary to anemia Permanent atrial fibrillation Normal coronary arteries, per cardiac catheterization 2019 Nonischemic cardiomyopathy, EF 45% Valvular heart disease History of TAVR Hypertension Pulmonary hypertension PLAN: Hold Eliquis and aspirin Avoid NSAIDs Begin Protonix 40mg IVP BID Resume additional home cardiac medications Recommend general surgery consult for endoscopy Further recommendations pending patient course Nurse practitioner note has been reviewed by physician. Signing provider agrees with the documented findings, assessment, and plan of care documented by PRIMARY GRADE TEACHER as a scribe. Past Medical History Past Medical History: Cancer, GI Bleed Additional Past Medical History / Comment(s): SEE DR. HALL'S H & P FOR CARDIOVASCULAR HSX. 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, glaucoma rt eye, colitis, shingles, skin cancer History of Any Multi-Drug Resistant Organisms: None Reported Past Surgical History: Back Surgery, Cardiac Valve Replacement, Orthopedic Surgery Additional Past Surgical History / Comment(s): SX: rt eye retinal repair and laser surgery for glaucoma, rt foot spur sx, rt elbow, and lety thumb surgeries, neck surgery to remove salivary gland, laminectomy(lumbar) Past Anesthesia/Blood Transfusion Reactions: No Reported Reaction Smoking Status: Former smoker - Past Family History Mother Family Medical History: Cancer Medications and Allergies Home Medications Medication Instructions Recorded Confirmed Type Aspirin 81 mg PO HS 05/21/15 02/02/24 History Apixaban [Eliquis] 5 mg PO BID 02/02/24 02/02/24 History Immunity Probiotic 1 tab PO DAILY 02/02/24 02/02/24 History Metoprolol Tartrate [Lopressor] 25 mg PO BID 02/02/24 02/02/24 History Multivitamins, Thera [Multivitamin 1 tab PO DAILY 02/02/24 02/02/24 History (formulary)] Propylene Glycol [Systane Complete] 1 drop BOTH EYES HS 02/02/24 02/02/24 History Vitamin B-12 (Unknown Strength) 1 dose PO HS 02/02/24 02/02/24 History Allergies Allergy/AdvReac Type Severity Reaction Status Date / Time doxycycline Allergy Severe tongue Verified 02/02/24 18:06 swelling and SOB alatrofloxacin mesylate Allergy Rash/Hives Verified 02/02/24 18:06 [From Trovan] clarithromycin [From Biaxin] Allergy genital Verified 02/02/24 18:06 swelling and irritation codeine Allergy Rash/Hives Verified 02/02/24 18:06 etodolac Allergy Unknown Verified 02/02/24 18:06 gatifloxacin [From Tequin] Allergy Rash/Hives Verified 02/02/24 18:06 levofloxacin [From Levaquin] Allergy Rash/Hives Verified 02/02/24 18:06 Penicillins Allergy Rash/Hives Verified 02/02/24 18:06 Sulfa (Sulfonamide Allergy "very high Verified 02/02/24 18:06 Antibiotics) fever" trovafloxacin mesylate Allergy Rash/Hives Verified 02/02/24 18:06 [From Trovan] Physical Exam Vitals: Vital Signs Temp Pulse Pulse Resp BP BP Pulse Ox 02/03/24 07:50 97.9 F 90 16 113/71 96 02/03/24 04:00 98.1 F 98 16 118/71 97 02/02/24 23:48 98.2 F 103 H 16 131/68 98 02/02/24 20:00 97.9 F 83 18 159/81 98 02/02/24 19:55 64 16 124/68 95 02/02/24 19:04 71 131/89 98 02/02/24 15:05 97.4 F L 59 L 16 154/105 100 Intake and Output 02/02/24 02/03/24 02/03/24 22:59 06:59 14:59 Intake Total 900 5 Balance 900 5 Intake: IV 5 Invasive Line 1 5 Intake, IV Titration 900 Amount Sodium Chloride 0.9% 1, 900 000 ml @ 75 mls/hr IV . [id number] ONE Rx#:[id number] Other: Voiding Method Toilet Toilet # Voids 1 2 Weight 65.317 kg 65.317 kg Results 02/03/24 02:47 02/02/24 15:40 Cardiac Enzymes 02/02/24 02/02/24 02/02/24 Range/Units 15:40 15:40 19:09 AST 42 H (14-36) U/L Troponin I 0.097 H* 0.112 H* (0.000-0.034) ng/mL 02/03/24 Range/Units 02:47 AST (14-36) U/L Troponin I 0.086 H* (0.000-0.034) ng/mL Coagulation 02/02/24 Range/Units 15:40 PT 12.4 (10.0-12.5) sec APTT 24.8 (22.0-30.0) sec CBC 02/02/24 02/02/24 02/03/24 Range/Units 15:40 19:09 02:47 WBC 9.2 7.2 6.0 (3.8-10.6) k/uL RBC 2.84 L 2.71 L 2.36 L (3.80-5.40) m/uL Hgb 8.7 L 8.4 L 7.3 L (11.4-16.0) gm/dL Hct 27.1 L 25.7 L 22.7 L (34.0-46.0) % Plt Count 210 187 161 (150-450) k/uL Comprehensive Metabolic Panel 02/02/24 Range/Units 15:40 Sodium 142 (137-145) mmol/L Potassium 4.5 (3.5-5.1) mmol/L Chloride 113 H (98-107) mmol/L Carbon Dioxide 18 L (22-30) mmol/L BUN 53 H (7-17) mg/dL Creatinine 0.88 (0.52-1.04) mg/dL Glucose 106 H (74-99) mg/dL Calcium 9.3 (8.4-10.2) mg/dL AST 42 H (14-36) U/L ALT 19 (4-34) U/L Alkaline Phosphatase 56 (38-126) U/L Total Protein 7.0 (6.3-8.2) g/dL Albumin 4.3 (3.5-5.0) g/dL Intake and Output 02/02/24 02/03/24 02/03/24 22:59 06:59 14:59 Intake Total 900 5 Balance 900 5 Intake: IV 5 Invasive Line 1 5 Intake, IV Titration 900 Amount Sodium Chloride 0.9% 1, 900 000 ml @ 75 mls/hr IV . [id number] ONE Rx#:[id number] Other: Voiding Method Toilet Toilet # Voids 1 2 Weight 65.317 kg 65.317 kg 02/03/24 02:47 02/02/24 15:40
--- NOTE | 2024-02-03 12:41 | P.HPIM ---
History of Present Illness H&P Date: 02/03/24 Chief Complaint: Rectal bleeding, black stools This is an 88-year-old female with past medical history significant for valvular heart disease, TAVR, prosthetic aortic valve, permanent atrial fibrillation on Eliquis, aspirin, pulmonary hypertension, hypertension, former nicotine dependence of 15 years, glaucoma with retinal and laser surgical repair, gait dysfunction, uses a cane and multiple other medical issues presented to the ER with complaints of black stools. Reports black stools initiated on Tuesday accompanied by midsternal chest pressure-possibly mid epigastric, nonradiating, relieved by rubbing her hand across the area. Denies abdominal pain or cramping. Denies lightheadedness, dizziness or focal deficits. Denies prior history of ulcers. Reports she has been taking Motrin PM nightly for sleep. EKG reported atrial fibrillation with controlled ventricular rate, troponins 0.097, 0.112, 0.086. proBNP 2350 .chest x-ray reported no acute process. Lactic acid 3.2, repeat level 1.4. afebrile, normal WBC. On admission hemoglobin 8.7, platelets 210, currently decreased to 7.3, 161. INR 1.2. Electrolytes within normal limits, bicarb 18, BUN 53, creatinine 0.88. RN reports that patient was very agitated this morning, pulled out her IV, threatening to call the police on her. Family called in for support. Review of Systems ROS Statement: Those systems with pertinent positive or pertinent negative responses have been documented in the HPI. ROS Other: All systems not noted in ROS Statement are negative. Past Medical History Past Medical History: Cancer, GI Bleed Additional Past Medical History / Comment(s): SEE DR. HALL'S H & P FOR CARDIOVASCULAR HSX. 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, glaucoma rt eye, colitis, shingles, skin cancer History of Any Multi-Drug Resistant Organisms: None Reported Past Surgical History: Back Surgery, Cardiac Valve Replacement, Orthopedic Surgery Additional Past Surgical History / Comment(s): SX: rt eye retinal repair and laser surgery for glaucoma, rt foot spur sx, rt elbow, and lety thumb surgeries, neck surgery to remove salivary gland, laminectomy(lumbar) Past Anesthesia/Blood Transfusion Reactions: No Reported Reaction Smoking Status: Former smoker - Past Family History Mother Family Medical History: Cancer Medications and Allergies Home Medications Medication Instructions Recorded Confirmed Type Aspirin 81 mg PO HS 05/21/15 02/02/24 History Apixaban [Eliquis] 5 mg PO BID 02/02/24 02/02/24 History Immunity Probiotic 1 tab PO DAILY 02/02/24 02/02/24 History Metoprolol Tartrate [Lopressor] 25 mg PO BID 02/02/24 02/02/24 History Multivitamins, Thera [Multivitamin 1 tab PO DAILY 02/02/24 02/02/24 History (formulary)] Propylene Glycol [Systane Complete] 1 drop BOTH EYES HS 02/02/24 02/02/24 History Vitamin B-12 (Unknown Strength) 1 dose PO HS 02/02/24 02/02/24 History Allergies Allergy/AdvReac Type Severity Reaction Status Date / Time doxycycline Allergy Severe tongue Verified 02/02/24 18:06 swelling and SOB alatrofloxacin mesylate Allergy Rash/Hives Verified 02/02/24 18:06 [From Trovan] clarithromycin [From Biaxin] Allergy genital Verified 02/02/24 18:06 swelling and irritation codeine Allergy Rash/Hives Verified 02/02/24 18:06 etodolac Allergy Unknown Verified 02/02/24 18:06 gatifloxacin [From Tequin] Allergy Rash/Hives Verified 02/02/24 18:06 levofloxacin [From Levaquin] Allergy Rash/Hives Verified 02/02/24 18:06 Penicillins Allergy Rash/Hives Verified 02/02/24 18:06 Sulfa (Sulfonamide Allergy "very high Verified 02/02/24 18:06 Antibiotics) fever" trovafloxacin mesylate Allergy Rash/Hives Verified 02/02/24 18:06 [From Trovan] Physical Exam Vitals: Vital Signs Temp Pulse Pulse Resp BP BP Pulse Ox 02/03/24 07:50 97.9 F 90 16 113/71 96 02/03/24 04:00 98.1 F 98 16 118/71 97 02/02/24 23:48 98.2 F 103 H 16 131/68 98 02/02/24 20:00 97.9 F 83 18 159/81 98 02/02/24 19:55 64 16 124/68 95 02/02/24 19:04 71 131/89 98 02/02/24 15:05 97.4 F L 59 L 16 154/105 100 Intake and Output 02/02/24 02/03/24 02/03/24 22:59 06:59 14:59 Intake Total 900 Balance 900 Intake: Intake, IV Titration 900 Amount Sodium Chloride 0.9% 1, 900 000 ml @ 75 mls/hr IV . [id number] ONE Rx#:[id number] Other: Voiding Method Toilet Toilet Toilet # Voids 1 2 Weight 65.317 kg 65.317 kg PHYSICAL EXAM: VITAL SIGNS: [As above] GENERAL: Pleasant, alert and oriented x 3, no acute distress, tearful HEENT: Normocephalic ,conjunctivae normal. eyes normal. NECK: Supple, no JVD. No thyroid enlargement. No LNs CARDIOVASCULAR: S1, S2. Irregular, systolic murmur RESPIRATION: Unlabored, equal air entry, essentially clear to auscultation with bilateral bases diminished. ABDOMEN: Soft, nontender . No guarding. no masses palpable. No ascites, No hepatosplenomegaly.Bowel sounds heard. LEGS: No edema. no swelling. NERVOUS SYSTEM: Cranial N 2-12 grossly normal. No focal deficits. Strength and sensation grossly intact. Skin: Warm and dry, no rash Results CBC & Chem 7: 02/03/24 02:47 02/02/24 15:40 Labs: Abnormal Lab Results - Last 24 Hours (Table) 02/02/24 02/02/24 02/02/24 Range/Units 15:40 15:40 15:40 RBC 2.84 L (3.80-5.40) m/uL Hgb 8.7 L (11.4-16.0) gm/dL Hct 27.1 L (34.0-46.0) % INR 1.2 H (<1.2) Chloride 113 H (98-107) mmol/L Carbon Dioxide 18 L (22-30) mmol/L BUN 53 H (7-17) mg/dL Glucose 106 H (74-99) mg/dL Plasma Lactic Acid Enrique (0.7-2.0) mmol/L AST 42 H (14-36) U/L Troponin I (0.000-0.034) ng/mL 02/02/24 02/02/24 02/02/24 Range/Units 15:40 15:40 19:09 RBC 2.71 L (3.80-5.40) m/uL Hgb 8.4 L (11.4-16.0) gm/dL Hct 25.7 L (34.0-46.0) % INR (<1.2) Chloride (98-107) mmol/L Carbon Dioxide (22-30) mmol/L BUN (7-17) mg/dL Glucose (74-99) mg/dL Plasma Lactic Acid Enrique 3.2 H* (0.7-2.0) mmol/L AST (14-36) U/L Troponin I 0.097 H* (0.000-0.034) ng/mL 02/02/24 02/03/24 02/03/24 Range/Units 19:09 02:47 02:47 RBC 2.36 L (3.80-5.40) m/uL Hgb 7.3 L (11.4-16.0) gm/dL Hct 22.7 L (34.0-46.0) % INR (<1.2) Chloride (98-107) mmol/L Carbon Dioxide (22-30) mmol/L BUN (7-17) mg/dL Glucose (74-99) mg/dL Plasma Lactic Acid Enrique (0.7-2.0) mmol/L AST (14-36) U/L Troponin I 0.112 H* 0.086 H* (0.000-0.034) ng/mL Thrombosis Risk Factor Assmnt - Choose All That Apply Any of the Below Risk Factors Present?: Yes Each Factor Represents 1 point: Obesity (BMI >25) Other Risk Factors: Yes Each Risk Factor Represents 3 Points: Age 75 years or older Other congenital or acquired thrombophilia - If yes, enter type in comment: No Thrombosis Risk Factor Assessment Total Risk Factor Score: 4 Thrombosis Risk Factor Assessment Level: Moderate Risk Assessment and Plan Assessment: Possible acute GI bleed, melena stools, midsternal nonradiating chest pressure, and anemia, in a patient anticoagulated on Eliquis ,aspirin and taking Motrin PM nightly. Acute anemia, secondary to the above, workup in progress Dehydration secondary to all the above Elevated troponins, possible type II NV related to anemia Acute metabolic encephalopathy secondary to the above, possible mild underlying dementia Permanent atrial fibrillation Valvular heart disease History of TAVR Nonischemic cardiomyopathy EF 45% Hypertension Pulmonary hypertension Plan: Continue on current medication regimen ,monitoring and symptomatic treatm ent. Midline IV ordered .No NSAIDs .Aspirin, Eliquis on hold, PPI for GI prophylaxis. Close monitoring of hemoglobin with repeat hemoglobin this afternoon and in no GI services available this weekend, general surgery consulted. Cardiology on consult. The impression and plan of care has been dictated as directed. : I performed a history and examination of this patient, discussed the same with the dictator. I agree with the dictator's note ,documented as a scribe. Any additional findings or plans will be noted.
[2024-02-03] MEDS: PANTOPRAZOLE 40 MG/10 ML VIAL IVP SCH (13:00)
[2024-02-03 13:38] LABS: Basophils % (A) 0 %; Eosinophils # (A) 0.2 k/uL (0-0.7); Eosinophils % (A) 3 %; HGB 7.9 gm/dL (11.4-16.0); Lymphocytes # (A) 1.8 k/uL (1.0-4.8); Lymphocytes % (A) 31 %; MCH 31.6 pg (25.0-35.0); MCHC 32.8 g/dL (31.0-37.0); MCV 96.6 fL (80.0-100.0); Monocytes # (A) 0.3 k/uL (0-1.0); Monocytes % (A) 6 %; Neutrophils # (A) 3.6 k/uL (1.3-7.7); Neutrophils % (A) 60 %; Platelet Count 187 k/uL (150-450); RBC 2.48 m/uL (3.80-5.40); RDW 14.4 % (11.5-15.5)
[2024-02-03] MEDS: METOPROLOL TARTRATE 25 MG TAB PO SCH (21:54)
[2024-02-03] MEDS: ARTIFICIAL TEARS-HYPROMELLOSE DROPS 15 ML BTL BOTH EYES SCH (21:55)
[2024-02-03] MEDS: DONEPEZIL 5 MG TAB PO SCH (21:55)
--- NOTE | 2024-02-04 08:41 | P.GSCN ---
History of Present Illness Consult date: 02/03/24 History of present illness: CHIEF COMPLAINT: GI bleed HISTORY OF PRESENT ILLNESS: The patient is a 88 year old female who presents with dark stools for 2 days prior to hospitalization. Her son and family are at bedside giving additional history. Patient denies any abdominal pain. She remarks that her stools were black. Since admission to the hospital, no further bowel movements. She denies any abdominal pain. "I am hungry." Patient's last dose of blood thinner was this morning. Last bowel movement 2 days ago. PAST MEDICAL HISTORY: See list and reviewed PAST SURGICAL HISTORY: See list and reviewed MEDICATIONS: See list and reviewed ALLERGIES: See list and reviewed SOCIAL HISTORY: See list and reviewed FAMILY HISTORY: See list and reviewed REVIEW OF ORGAN SYSTEMS: CONSTITUTIONAL: No fevers or chills. No recent weight loss. EYES: Has glaucoma of the eye. HEENT: No difficulties with hearing. No nosebleeds. No difficulty swallowing. RESPIRATORY: Denies pneumonia. Denies any troubles with breathing or dyspnea on exertion. CARDIOVASCULAR: Hypertensive heart disease including recent valvular replacement. GASTROINTESTINAL: History of colitis with new GI bleed. GENITOURINARY: Denies any blood in urine or increased urinary frequency. NEUROLOGICAL: Denies any numbness or tingling along the distal extremities. No seizure disorders or headaches. MUSCULOSKELETAL: Denies any back pain, stiffness or joint arthritis. SKIN: No current skin cancer. No rash. PSYCHIATRIC: Denies current depression or suicidal thoughts. ENDOCRINE: Denies current thyroid disorders. Denies any blood sugar glucose intolerance. HEME/LYMPHATIC: Denies any lumps and bumps around the neck. No recent deep venous thrombosis. ALLERGY/IMMUNOLOGY: No immunoglobulin therapy. No immune deficiencies. BREAST: Denies current breast lumps, pain or nipple discharge. PHYSICAL EXAM: VITALS: Reviewed CONSTITUTIONAL: Well developed and in no acute distress. EYES: Conjuctivae without sclera icterus. Extraocular movements grossly intact. HEAD, EARS, NOSE, THROAT: Moist buccal mucosa. Head is atraumatic, normocephalic. Hears conversational speech. No nasal drainage. NECK: Supple. No JV distention. No thyroidomegaly. RESPIRATORY: Non-labored respirations and equal bilateral excursions. No gross wheezes. CARDIOVASCULAR: Palpable 2+ radial pulses. ABDOMEN: No peritonitis. Nontender. LYMPH: No neck lymphadenopathy. MUSCULOSKELETAL: No clubbing cyanosis or edema SKIN: Warm and well perfused with good skin turgor. NEUROLOGIC: Cranial nerves II through XII grossly intact. No focal or lateralizing signs. PSYCH: Appropriate affect. Alert and oriented to person, place and time. Displays appropriate insight. CLINCAL LABS: Reviewed. Hemoglobin on admission 8.7, anemia down to 7.3. IMAGING: Independently reviewed. Chest x-ray independently reviewed demonstrates no pneumothorax. This is my independent interpretation. RADIOLOGY: Report reviewed RECORDS: previous old records reviewed CT abdomen from 2017 reviewed demonstrating presence of diverticulosis. This is my independent interpretation. EKG: Reviewed demonstrating atrial fibrillation ASSESSMENT: 1. Gastrointestinal bleeding 2. Chronic anticoagulation 3. Atrial fibrillation 4. History of valvular replacement PLAN: 1. Discontinue oral blood thinner. Due to Eliquis, will need 2 days prior to biopsies 2. Upper endoscopy discussed with family scheduled for Tuesday 3. Monitor hemoglobin 4. May have heart healthy diet in the interim 5. Plan discussed and reviewed with patient and family who agreed with care plan of diet today, hold oral blood thinner, upper endoscopy Tuesday. ADVANCE DIRECTIVE: CODE STATUS in chart Thank you for this kind consultation. Past Medical History Past Medical History: Cancer, GI Bleed Additional Past Medical History / Comment(s): SEE DR. HALL'S H & P FOR CARD IOVASCULAR HSX. 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, glaucoma rt eye, colitis, shingles, skin cancer History of Any Multi-Drug Resistant Organisms: None Reported Past Surgical History: Back Surgery, Cardiac Valve Replacement, Orthopedic Surgery Additional Past Surgical History / Comment(s): SX: rt eye retinal repair and laser surgery for glaucoma, rt foot spur sx, rt elbow, and lety thumb surgeries, neck surgery to remove salivary gland, laminectomy(lumbar) Past Anesthesia/Blood Transfusion Reactions: No Reported Reaction Smoking Status: Former smoker - Past Family History Mother Family Medical History: Cancer Medications and Allergies Home Medications Medication Instructions Recorded Confirmed Type Aspirin 81 mg PO HS 05/21/15 02/02/24 History Apixaban [Eliquis] 5 mg PO BID 02/02/24 02/02/24 History Immunity Probiotic 1 tab PO DAILY 02/02/24 02/02/24 History Metoprolol Tartrate [Lopressor] 25 mg PO BID 02/02/24 02/02/24 History Multivitamins, Thera [Multivitamin 1 tab PO DAILY 02/02/24 02/02/24 History (formulary)] Propylene Glycol [Systane Complete] 1 drop BOTH EYES HS 02/02/24 02/02/24 History Vitamin B-12 (Unknown Strength) 1 dose PO HS 02/02/24 02/02/24 History Allergies Allergy/AdvReac Type Severity Reaction Status Date / Time doxycycline Allergy Severe tongue Verified 02/02/24 18:06 swelling and SOB alatrofloxacin mesylate Allergy Rash/Hives Verified 02/02/24 18:06 [From Trovan] clarithromycin [From Biaxin] Allergy genital Verified 02/02/24 18:06 swelling and irritation codeine Allergy Rash/Hives Verified 02/02/24 18:06 etodolac Allergy Unknown Verified 02/02/24 18:06 gatifloxacin [From Tequin] Allergy Rash/Hives Verified 02/02/24 18:06 levofloxacin [From Levaquin] Allergy Rash/Hives Verified 02/02/24 18:06 Penicillins Allergy Rash/Hives Verified 02/02/24 18:06 Sulfa (Sulfonamide Allergy "very high Verified 02/02/24 18:06 Antibiotics) fever" trovafloxacin mesylate Allergy Rash/Hives Verified 02/02/24 18:06 [From Trovan] Surgical - Exam Vital Signs Temp Pulse Resp BP Pulse Ox 97.4 F L 59 L 16 154/105 100 02/02/24 15:05 02/02/24 15:05 02/02/24 15:05 02/02/24 15:05 02/02/24 15:05 Results - Labs 02/03/24 13:24 02/02/24 15:40 Abnormal Lab Results - Last 24 Hours (Table) 02/03/24 Range/Units 13:24 RBC 2.48 L (3.80-5.40) m/uL Hgb 7.9 L (11.4-16.0) gm/dL Hct 24.0 L (34.0-46.0) %
[2024-02-04] MEDS: LACTOBACILLUS ACIDOPHILUS/PECT 1 EACH CAPSULE PO SCH (09:44)
--- NOTE | 2024-02-04 10:04 | P.PN ---
Subjective HISTORY OF PRESENT ILLNESS: This is a 88-year-old female with a past medical history significant for valvular heart disease with previous TAVR, atrial fibrillation, nonischemic cardiomyopathy, pulmonary hypertension and hypertension. Patient follows in the office with Dr. Covington. We have been asked to see the patient in consultation for elevated troponins. Patient examined at the bedside. Patient has been having black stools for 2 days. She is anticoagulated on an outpatient basis with Eliquis. Also was prescribed a baby aspirin on an outpatient basis. She denies any abdominal pain at the time of examination. She does report having some epigastric pain prior to coming to the hospital which was relieved by rubbing her abdomen. She denies any history of ulcers in the past. She does report she has been taking Motrin PM at night recently to help her sleep. DIAGNOSTICS: - EKG reveals atrial fibrillation with controlled ventricular rate. - Chest xray negative for acute process - Laboratory data: WBC 6.0. Hemoglobin 7.6. Platelet count 161. Sodium 142. Potassium 4.5. BUN 53. Creatinine 0.88. Lactic acid 3.2. Repeat 1.4. proBNP 2350. Troponin 0.0697. 0.112. 0.086. - Current home cardiac medications include Eliquis 5 mg twice a day, aspirin 81 mg daily, metoprolol tartrate 25 mg twice a day - Cardiac catheterization history: obtained in December 2018 revealing normal coronary arteries - Most recent echocardiogram in November 2023 revealing ejection fraction 45%, moderate TR, moderate pulmonary hypertension, moderate to severe MR, and prosthetic aortic valve 02/04/2024 Patient examined this morning at the bedside. Patient denies chest pain or pressure. She denies shortness of breath at rest. She does report shortness of breath with exertion. Blood pressure 127/64. Hemoglobin this morning 7.9. Patient was evaluated by general surgery and plan for endoscopy on Tuesday. PHYSICAL EXAM: VITAL SIGNS: Reviewed. GENERAL: Well-developed in no acute distress. HEENT: Head is normocephalic. Pupils are equal, round. Sclerae anicteric. Mucous membranes of the mouth are moist. Neck supple. No JVD or thyromegaly LUNGS: Respirations even and unlabored. Lungs essentially clear to auscultation bilaterally. HEART: Irregular rate and rhythm. S1 and S2 heard. ABDOMEN: Soft. Nondistended. Nontender. EXTREMITIES: Normal range of motion. No clubbing or cyanosis. Peripheral pulses intact. No lower extremity edema NEUROLOGIC: Awake and alert. Oriented x 3. ASSESSMENT: Generalized weakness Melena, suspected upper GI bleed Elevated troponins, likely type II [place] secondary to anemia Permanent atrial fibrillation Normal coronary arteries, per cardiac catheterization 2018 Nonischemic cardiomyopathy, EF 45% Valvular heart disease History of TAVR Hypertension Pulmonary hypertension PLAN: Hold Eliquis and aspirin Avoid NSAIDs Continue Protonix 40mg IVP BID Continue additional current cardiac medications General surgery has evaluated patient. Plan is for endoscopy on Tuesday. Further recommendations pending patient course Nurse practitioner note has been reviewed by physician. Signing provider agrees with the documented findings, assessment, and plan of care documented by TIRE BUILDER as a scribe. Objective - Vital Signs Vital signs: Vital Signs Temp 98.0 F 02/04/24 03:49 Pulse 86 02/04/24 03:49 Resp 16 02/04/24 03:49 BP 127/64 02/04/24 03:49 Pulse Ox 97 02/04/24 03:49 FiO2 Intake & Output 02/03/24 02/04/24 02/04/24 18:59 06:59 18:59 Intake Total 1028 110 Balance 1028 110 Intake: IV 10 Invasive Line 2 10 Intake, IV Titration 900 Amount Sodium Chloride 0.9% 1, 900 000 ml @ 75 mls/hr IV . [id number] ONE Rx#:[id number] Oral 118 110 Other: Voiding Method Toilet Toilet # Voids 2 1 - Labs CBC & Chem 7: 02/03/24 13:24 02/02/24 15:40 Labs: Abnormal Lab Results - Last 24 Hours (Table) 02/03/24 Range/Units 13:24 RBC 2.48 L (3.80-5.40) m/uL Hgb 7.9 L (11.4-16.0) gm/dL Hct 24.0 L (34.0-46.0) %
[2024-02-04 10:35] LABS: HCT 27.6 % (34.0-46.0); HGB 8.6 gm/dL (11.4-16.0); Hypochromasia Marked; MCHC 31.1 g/dL (31.0-37.0); Macrocytosis Slight; Mean Platelet Volume 8.4; Platelet Count 161 k/uL (150-450); RBC 2.69 m/uL (3.80-5.40); WBC 6.9 k/uL (3.8-10.6)
[2024-02-04 10:39] LABS: MCV 102.9 fL (80.0-100.0)
--- NOTE | 2024-02-04 11:38 | P.PN ---
Subjective 02/03/24 This is an 88-year-old female with past medical history significant for valvular heart disease, TAVR, prosthetic aortic valve, permanent atrial fibrillation on Eliquis, aspirin, pulmonary hypertension, hypertension, former nicotine dependence of 15 years, glaucoma with retinal and laser surgical repair, gait dysfunction, uses a cane and multiple other medical issues presented to the ER with complaints of black stools. Reports black stools initiated on Tuesday accompanied by midsternal chest pressure-possibly mid epigastric, nonradiating, relieved by rubbing her hand across the area. Denies abdominal pain or cramping. Denies lightheadedness, dizziness or focal deficits. Denies prior history of ulcers. Reports she has been taking Motrin PM nightly for sleep. EKG reported atrial fibrillation with controlled ventricular rate, troponins 0.097, 0.112, 0.086. proBNP 2350 .chest x-ray reported no acute process. Lactic acid 3.2, repeat level 1.4. afebrile, normal WBC. On admission hemoglobin 8.7, platelets 210, currently decreased to 7.3, 161. INR 1.2. Electrolytes within normal limits, bicarb 18, BUN 53, creatinine 0.88. RN reports that patient was very agitated this morning, pulled out her IV, threatening to call the police on her. Family called in for support. February 04, 2024: Patient is here for GI bleed. She been off Eliquis since February 01. She was seen in the office originally complaining of black stool, confirmed with Hemoccult. She was dizzy and lightheaded. At that point she was sent emergency room. Found to have hemoglobin 8.4. She also had elevated troponins. Was admitted and seen by cardiology. Aspirin is also discontinued. She is on pantoprazole now. She had a notable confusion and staff is concerned about underlying dementia. She was started on donezepil as well 1 day ago. She seems to be tolerating this. Cardiology had seen her addressing her abnormal troponins, TAVR history, atrial fibrillation, and agree with discontinuation of aspirin and Eliquis. They believe she might of had a type II LA from anemia. They are following. General surgery seen her and they are planning EGD tomorrow with possible biopsies. Patient is tolerating clears. She has not had a bowel movement. She denies any chest pains pressures or shortness of breath at rest at this time. He does get short of breath with exertion. Objective - Vital Signs Vital signs: Vital Signs Temp 97.7 F 02/04/24 09:40 Pulse 98 02/04/24 09:40 Resp 16 02/04/24 09:40 BP 132/72 02/04/24 09:40 Pulse Ox 98 02/04/24 09:40 FiO2 Intake & Output 02/03/24 02/04/24 02/04/24 18:59 06:59 18:59 Intake Total 1028 110 Balance 1028 110 Intake: IV 10 Invasive Line 2 10 Intake, IV Titration 900 Amount Sodium Chloride 0.9% 1, 900 000 ml @ 75 mls/hr IV . [id number] ONE Rx#:[id number] Oral 118 110 Other: Voiding Method Toilet Toilet # Voids 2 1 - Exam General: The patient is awake and alert, elderly female in no distress Neck: The neck is supple, there is no thyromegaly, lymphadenopathy, tenderness or JVD. Cardiovascular: S1S2 is normal, There is a regular rate and rhythm. No , rub or gallop is appreciated. 1/6 systolic murmur at the right sternal border consistent with her TAVR procedure history. Respiratory: Lungs are clear to auscultation bilaterally, respirations are non-labored, breath sounds are equal. Gastrointestinal: Soft, non-distended, non-tender abdomen without masses or organomegaly noted. There is no rebound or guarding present. Bowel sounds are unremarkable. Musculoskeletal: Normal ROM, no tenderness, There is no pedal edema. There is no calf tenderness or swelling. No cords were appreciated. Neurological: CN II-XII intact, there are no obvious motor or sensory deficits. Coordination appears grossly intact. Speech is normal. Skin: Skin is warm and dry and no rashes or lesions are noted. - Labs CBC & Chem 7: 02/04/24 09:32 02/02/24 15:40 Labs: Abnormal Lab Results - Last 24 Hours (Table) 02/03/24 02/04/24 Range/Units 13:24 09:32 RBC 2.48 L 2.69 L (3.80-5.40) m/uL Hgb 7.9 L 8.6 L (11.4-16.0) gm/dL Hct 24.0 L 27.6 L (34.0-46.0) % MCV 102.9 H D (80.0-100.0) fL Assessment and Plan (1) Acute GI bleeding Current Visit: Yes Status: Acute Code(s): K92.2 - GASTROINTESTINAL HEMORRHAGE, UNSPECIFIED SNOMED Code(s): 61715263 (2) Melena Current Visit: Yes Status: Acute Code(s): K92.1 - MELENA SNOMED Code(s): 3368281 (3) Type 2 myocardial infarction due to anemia Current Visit: Yes Status: Acute Code(s): D64.9 - ANEMIA, UNSPECIFIED; I21.A1 - MYOCARDIAL INFARCTION TYPE 2 SNOMED Code(s): 10508759 (4) Dementia Current Visit: Yes Status: Acute Code(s): F03.90 - UNSP DEMENTIA, UNSP SEVERITY, WITHOUT BEH/PSYCH/MOOD/ANX SNOMED Code(s): 08440801 (5) Atrial fibrillation Current Visit: Yes Status: Acute Code(s): I48.91 - UNSPECIFIED ATRIAL FIBRILLATION SNOMED Code(s): 13834345 (6) H/O valvular heart disease Current Visit: Yes Status: Acute Code(s): Z86.79 - PERSONAL HISTORY OF OTHER DISEASES OF THE CIRCULATORY SYSTEM SNOMED Code(s): 376988107 (7) H/O aortic valve repair Current Visit: Yes Status: Acute Code(s): Z98.890 - OTHER SPECIFIED POSTPROCEDURAL STATES; Z86.79 - PERSONAL HISTORY OF OTHER DISEASES OF THE CIRCULATORY SYSTEM SNOMED Code(s): 766421689560777 (8) Nonischemic cardiomyopathy Current Visit: Yes Status: Acute Code(s): I42.8 - OTHER CARDIOMYOPATHIES SNOMED Code(s): 19698668 (9) Essential (primary) hypertension Current Visit: Yes Status: Acute Code(s): I10 - ESSENTIAL (PRIMARY) HYPERTENSION SNOMED Code(s): 37113886 (10) Dehydration Current Visit: Yes Status: Acute Code(s): E86.0 - DEHYDRATION SNOMED Code(s): 97597026 (11) Elevated troponin Current Visit: Yes Status: Acute Code(s): R79.89 - OTHER SPECIFIED ABNORMAL FINDINGS OF BLOOD CHEMISTRY SNOMED Code(s): 600453433 Plan: She remains off aspirin and Eliquis and on pantoprazole. She is scheduled for EGD tomorrow. She remained stable. Recheck labs in AM. Wait on further recommendations from cardiology and general surgery. Has been started on donezepil for underlying dementia. To be reevaluated by family medicine in the next 24 hours.
--- NOTE | 2024-02-04 12:13 | P.PN ---
Subjective Progress Note Date: 02/04/24 No acute events overnight. No worsening abdominal pain. No nausea or vomiting. No fevers or chills. No hematemesis. No melena. She admits to flatus but no further bowel movements. Voiding without issue. Objective - Vital Signs Vital signs: Vital Signs Temp 97.7 F 02/04/24 09:40 Pulse 74 02/04/24 11:56 Resp 16 02/04/24 11:56 BP 138/91 02/04/24 11:56 Pulse Ox 94 L 02/04/24 11:56 FiO2 Intake & Output 02/03/24 02/04/24 02/04/24 18:59 06:59 18:59 Intake Total 1028 110 Balance 1028 110 Intake: IV 10 Invasive Line 2 10 Intake, IV Titration 900 Amount Sodium Chloride 0.9% 1, 900 000 ml @ 75 mls/hr IV . [id number] ONE Rx#:[id number] Oral 118 110 Other: Voiding Method Toilet Toilet # Voids 2 1 - Exam Gen: AxO, NAD Pulm: non-labored respirations Abd: soft, mildly-tender around epigastrium mildly-distended. No guarding/rebound/rigidity Extrem: no edema seen - Labs CBC & Chem 7: 02/04/24 09:32 02/02/24 15:40 Labs: Abnormal Lab Results - Last 24 Hours (Table) 02/03/24 02/04/24 Range/Units 13:24 09:32 RBC 2.48 L 2.69 L (3.80-5.40) m/uL Hgb 7.9 L 8.6 L (11.4-16.0) gm/dL Hct 24.0 L 27.6 L (34.0-46.0) % MCV 102.9 H D (80.0-100.0) fL Assessment and Plan Assessment: Patient is an 88-year-old female who presents with melena concerning for upper GI bleed Plan: -NPO at midnight -Trend Hb; transfuse per primary -PRN pain and nausea control -IV ppi -Plan for EGD tomorrow: 02/04 Ronny Cotto MD General Surgery
[2024-02-04 12:29] LABS: Basophils # (M) 0.07 k/uL (0-0.2); Eosinophils # (M) 0.28 k/uL (0-0.7); Lymphocytes # (M) 1.45 k/uL (1.0-4.8); Monocytes # (M) 0.35 k/uL (0-1.0); Neutrophils # (M) 4.76 k/uL (1.3-7.7); Neutrophils % (M) 69 %; Nucleated Red Blood Cells 0 /100 WBC (0-0); Total Cells Counted 100
[2024-02-04 12:31] LABS: Anisocytosis (M) Present
[2024-02-05] MEDS: LACTULOSE 20 GM/30 ML CUP PO ONE (09:26)
[2024-02-05] MEDS: MAGNESIUM HYDROXIDE 2,400 MG/30 ML CUP PO SCH (09:26)
--- NOTE | 2024-02-05 10:58 | P.PN ---
Subjective Progress Note Date: 02/05/24 Patient has not had a bowel movement. Patient presented with GI bleed. Hemoglobin trending upward. Due to significant delay in operating room and patient not having bowel movement, do recommend both upper and lower endoscopy for tomorrow morning. Start clear liquid diet. Start prolonged bowel prep. 2 L GoLytely prescribed. Lactulose and milk of magnesia prescribed. Benefits and risks of procedure described to patient and at bedside Objective - Vital Signs Vital signs: Vital Signs Temp 98.1 F 02/05/24 07:48 Pulse 81 02/05/24 07:48 Resp 16 02/05/24 07:48 BP 175/89 02/05/24 07:48 Pulse Ox 98 02/05/24 07:48 FiO2 Intake & Output 02/04/24 02/05/24 02/05/24 18:59 06:59 18:59 Intake Total 330 Output Total 900 Balance 330 -900 Intake: Oral 330 Output: Urine 900 Other: Voiding Method Toilet # Voids 2 1 - Labs CBC & Chem 7: 02/04/24 09:32 02/02/24 15:40
[2024-02-05] MEDS: PEG 3350 (420 GM/BTL) + LYTES 4,000 ML BOTTLE PO ONE (11:25)
--- NOTE | 2024-02-05 11:25 | P.PN ---
Subjective 02/03/24 This is an 88-year-old female with past medical history significant for valvular heart disease, TAVR, prosthetic aortic valve, permanent atrial fibrillation on Eliquis, aspirin, pulmonary hypertension, hypertension, former nicotine dependence of 15 years, glaucoma with retinal and laser surgical repair, gait dysfunction, uses a cane and multiple other medical issues presented to the ER with complaints of black stools. Reports black stools initiated on Tuesday accompanied by midsternal chest pressure-possibly mid epigastric, nonradiating, relieved by rubbing her hand across the area. Denies abdominal pain or cramping. Denies lightheadedness, dizziness or focal deficits. Denies prior history of ulcers. Reports she has been taking Motrin PM nightly for sleep. EKG reported atrial fibrillation with controlled ventricular rate, troponins 0.097, 0.112, 0.086. proBNP 2350 .chest x-ray reported no acute process. Lactic acid 3.2, repeat level 1.4. afebrile, normal WBC. On admission hemoglobin 8.7, platelets 210, currently decreased to 7.3, 161. INR 1.2. Electrolytes within normal limits, bicarb 18, BUN 53, creatinine 0.88. RN reports that patient was very agitated this morning, pulled out her IV, threatening to call the police on her. Family called in for support. February 04, 2024: Patient is here for GI bleed. She been off Eliquis since February 01. She was seen in the office originally complaining of black stool, confirmed with Hemoccult. She was dizzy and lightheaded. At that point she was sent emergency room. Found to have hemoglobin 8.4. She also had elevated troponins. Was admitted and seen by cardiology. Aspirin is also discontinued. She is on pantoprazole now. She had a notable confusion and staff is concerned about underlying dementia. She was started on donezepil as well 1 day ago. She seems to be tolerating this. Cardiology had seen her addressing her abnormal troponins, TAVR history, atrial fibrillation, and agree with discontinuation of aspirin and Eliquis. They believe she might of had a type II DC from anemia. They are following. General surgery seen her and they are planning EGD tomorrow with possible biopsies. Patient is tolerating clears. She has not had a bowel movement. She denies any chest pains pressures or shortness of breath at rest at this time. He does get short of breath with exertion. February 05, 2024: Patient is reevaluated for her GI bleeding. She remains off Eliquis and aspirin. General surgery is planning EGD colonoscopy tomorrow. Delayed due to the lack of operating room availability today. Crystal denies any complaints other than some slight dizziness when she gets up. She is using a walker to ambulate today. Vitals remained stable. Blood pressure was somewhat elevated this morning. Labs are still pending for today. Patient does report having a bowel movement this morning that was brownish-black. Objective - Vital Signs Vital signs: Vital Signs Temp 98.1 F 02/05/24 07:48 Pulse 81 02/05/24 07:48 Resp 16 02/05/24 07:48 BP 175/89 02/05/24 07:48 Pulse Ox 98 02/05/24 07:48 FiO2 Intake & Output 02/04/24 02/05/24 02/05/24 18:59 06:59 18:59 Intake Total 330 Output Total 900 Balance 330 -900 Intake: Oral 330 Output: Urine 900 Other: Voiding Method Toilet # Voids 2 1 - Exam General: The patient is awake and alert, elderly female in no distress Neck: The neck is supple, there is no thyromegaly, lymphadenopathy, tenderness or JVD. Cardiovascular: S1S2 is normal, There is a regular rate and rhythm. No , rub or gallop is appreciated. 1/6 systolic murmur at the right sternal border consistent with her TAVR procedure history. Respiratory: Lungs are clear to auscultation bilaterally, respirations are non-labored, breath sounds are equal. Gastrointestinal: Soft, non-distended, non-tender abdomen without masses or organomegaly noted. There is no rebound or guarding present. Bowel sounds are unremarkable. Musculoskeletal: Normal ROM, no tenderness, There is no pedal edema. There is no calf tenderness or swelling. No cords were appreciated. Neurological: CN II-XII intact, there are no obvious motor or sensory deficits. Coordination appears grossly intact. Speech is normal. Skin: Skin is warm and dry and no rashes or lesions are noted. - Labs CBC & Chem 7: 02/04/24 09:32 02/02/24 15:40 Assessment and Plan (1) Acute GI bleeding Current Visit: Yes Status: Acute Code(s): K92.2 - GASTROINTESTINAL HEMORRHAGE, UNSPECIFIED SNOMED Code(s): 58779496 (2) Melena Current Visit: Yes Status: Acute Code(s): K92.1 - MELENA SNOMED Code(s): 8920765 (3) Type 2 myocardial infarction due to anemia Current Visit: Yes Status: Acute Code(s): D64.9 - ANEMIA, UNSPECIFIED; I21.A1 - MYOCARDIAL INFARCTION TYPE 2 SNOMED Code(s): 72193838 (4) Dementia Current Visit: Yes Status: Acute Code(s): F03.90 - UNSP DEMENTIA, UNSP SEVERITY, WITHOUT BEH/PSYCH/MOOD/ANX SNOMED Code(s): 07946377 (5) Atrial fibrillation Current Visit: Yes Status: Acute Code(s): I48.91 - UNSPECIFIED ATRIAL FIBRILLATION SNOMED Code(s): 51365143 (6) H/O valvular heart disease Current Visit: Yes Status: Acute Code(s): Z86.79 - PERSONAL HISTORY OF OTHER DISEASES OF THE CIRCULATORY SYSTEM SNOMED Code(s): 066359793 (7) H/O aortic valve repair Current Visit: Yes Status: Acute Code(s): Z98.890 - OTHER SPECIFIED POSTPROCEDURAL STATES; Z86.79 - PERSONAL HISTORY OF OTHER DISEASES OF THE CIRCULATORY SYSTEM SNOMED Code(s): 889590210991121 (8) Nonischemic cardiomyopathy Current Visit: Yes Status: Acute Code(s): I42.8 - OTHER CARDIOMYOPATHIES SNOMED Code(s): 89269946 (9) Essential (primary) hypertension Current Visit: Yes Status: Acute Code(s): I10 - ESSENTIAL (PRIMARY) HYPERTENSION SNOMED Code(s): 00869010 (10) Dehydration Current Visit: Yes Status: Acute Code(s): E86.0 - DEHYDRATION SNOMED Code(s): 79138493 (11) Elevated troponin Current Visit: Yes Status: Acute Code(s): R79.89 - OTHER SPECIFIED ABNORMAL FINDINGS OF BLOOD CHEMISTRY SNOMED Code(s): 330727630 Plan: She remains off aspirin and Eliquis and on pantoprazole. She is scheduled for EGD/colonoscopy tomorrow. This was delayed from today due to operating room staffing. She remained stable. Recheck labs in AM. Wait on further recommendations from cardiology and general surgery. Continue donezepil for underlying dementia. PT/OT to evaluate as well. To be reevaluated by family medicine in the next 24 hours.
--- NOTE | 2024-02-05 13:18 | P.PN ---
Subjective Progress Note Date: 02/05/24 HISTORY OF PRESENT ILLNESS: This is a 88-year-old female with a past medical history significant for va lvular heart disease with previous TAVR, atrial fibrillation, nonischemic cardiomyopathy, pulmonary hypertension and hypertension. Patient follows in the office with Dr. Covington. We have been asked to see the patient in consultation for elevated troponins. Patient examined at the bedside. Patient has been having black stools for 2 days. She is anticoagulated on an outpatient basis with Eliquis. Also was prescribed a baby aspirin on an outpatient basis. She denies any abdominal pain at the time of examination. She does report having some epigastric pain prior to coming to the hospital which was relieved by rubbing her abdomen. She denies any history of ulcers in the past. She does report she has been taking Motrin PM at night recently to help her sleep. DIAGNOSTICS: - EKG reveals atrial fibrillation with controlled ventricular rate. - Chest xray negative for acute process - Laboratory data: WBC 6.0. Hemoglobin 7.6. Platelet count 161. Sodium 142. Potassium 4.5. BUN 53. Creatinine 0.88. Lactic acid 3.2. Repeat 1.4. proBNP 2350. Troponin 0.0697. 0.112. 0.086. - Current home cardiac medications include Eliquis 5 mg twice a day, aspirin 81 mg daily, metoprolol tartrate 25 mg twice a day - Cardiac catheterization history: obtained in December 2018 revealing normal coronary arteries - Most recent echocardiogram in November 2023 revealing ejection fraction 45%, moderate TR, moderate pulmonary hypertension, moderate to severe MR, and prosthetic aortic valve 02/04/2024 Patient examined this morning at the bedside. Patient denies chest pain or pressure. She denies shortness of breath at rest. She does report shortness of breath with exertion. Blood pressure 127/64. Hemoglobin this morning 7.9. Patient was evaluated by general surgery and plan for endoscopy on Tuesday. 02/05/2024 Patient sitting up at bedside with no new complaints. Denies any chest pain or pressure. She is currently doing oral prep for colonoscopy with plans for upper and lower GI scopes tomorrow. Blood pressure elevated. PHYSICAL EXAM: VITAL SIGNS: Reviewed. GENERAL: Well-developed in no acute distress. HEENT: Head is normocephalic. Pupils are equal, round. Sclerae anicteric. Mucous membranes of the mouth are moist. Neck supple. No JVD or thyromegaly LUNGS: Respirations even and unlabored. Lungs essentially clear to auscultation bilaterally. HEART: Irregular rate and rhythm. S1 and S2 heard. ABDOMEN: Soft. Nondistended. Nontender. EXTREMITIES: Normal range of motion. No clubbing or cyanosis. Peripheral pulses intact. No lower extremity edema NEUROLOGIC: Awake and alert. Oriented x 3. ASSESSMENT: Generalized weakness Melena, suspected upper GI bleed Elevated troponins, likely type II [place] secondary to anemia Permanent atrial fibrillation Normal coronary arteries, per cardiac catheterization 2018 Nonischemic cardiomyopathy, EF 45% Valvular heart disease History of TAVR Hypertension Pulmonary hypertension PLAN: Monitor blood pressure. Consider adjusting meds if consistently elevated. Hold Eliquis and aspirin Avoid NSAIDs Continue Protonix 40mg IVP BID Continue additional current cardiac medications General surgery has evaluated patient. Plan is for upper and lower scope on Monday 02/05. Further recommendations pending patient course Nurse practitioner note has been reviewed by physician. Signing provider agrees with the documented findings, assessment, and plan of care documented by RAILROAD ENGINEER as a scribe. Objective - Vital Signs Vital signs: Vital Signs Temp 98.1 F 02/05/24 07:48 Pulse 81 02/05/24 07:48 Resp 16 02/05/24 07:48 BP 175/89 02/05/24 07:48 Pulse Ox 98 02/05/24 07:48 FiO2 Intake & Output 02/04/24 02/05/24 02/05/24 18:59 06:59 18:59 Intake Total 330 Output Total 900 Balance 330 -900 Intake: Oral 330 Output: Urine 900 Other: Voiding Method Toilet # Voids 2 1 - Labs CBC & Chem 7: 02/04/24 09:32 02/02/24 15:40
[2024-02-05 13:56] LABS: Basophils # (A) 0.1 k/uL (0-0.2); Basophils % (A) 1 %; Eosinophils # (A) 0.6 k/uL (0-0.7); Eosinophils % (A) 7 %; HGB 9.4 gm/dL (11.4-16.0); Lymphocytes # (A) 1.4 k/uL (1.0-4.8); Lymphocytes % (A) 15 %; MCH 34.5 pg (25.0-35.0); MCHC 36.2 g/dL (31.0-37.0); Mean Platelet Volume 11.1; Monocytes # (A) 0.6 k/uL (0-1.0); Monocytes % (A) 6 %; Neutrophils # (A) 6.7 k/uL (1.3-7.7); Neutrophils % (A) 71 %; Platelet Count 168 k/uL (150-450); RBC 2.72 m/uL (3.80-5.40); RDW 15.8 % (11.5-15.5); WBC 9.4 k/uL (3.8-10.6)
[2024-02-05 14:05] LABS: African American GFR (CKD) 61 (>60 ml/min/1.73 sqM); Anion Gap 13 mmol/L; Blood Urea Nitrogen 16 mg/dL (7-17); Calcium 9.1 mg/dL (8.4-10.2); Carbon Dioxide 14 mmol/L (22-30); Chloride 120 mmol/L (98-107); Glucose 137 mg/dL (74-99); MCV 95.5 fL (80.0-100.0); Non-African American GFR(CKD) 53 (>60 ml/min/1.73 sqM); Sodium 147 mmol/L (137-145)
[2024-02-05 14:19] LABS: Potassium 5.6 mmol/L (3.5-5.1)
[2024-02-06 07:51] VITALS: RESP 16; TEMP 98.3
[2024-02-06] MEDS: IV FLUID CONTINUATION 600 ML IV ONE (08:00)
[2024-02-06] MEDS ORDERED: PROPOFOL 10 MG/ML 20 ML VIAL IV ONE (08:04)
[2024-02-06] MEDS ORDERED: LIDOCAINE 1% INJ 10MG/ML (20 ML MDV) ONE (08:04)
[2024-02-06] MEDS ORDERED: hydrALAZINE HCL 20 MG/ML 1 ML VIAL ONE (08:04)
--- NOTE | 2024-02-06 08:35 | P.PCN ---
Date of Procedure: 02/06/24 Description of Procedure: PREOPERATIVE DIAGNOSIS: Acute gastrointestinal bleeding Positive stool occult blood Anticoagulant use POSTOPERATIVE DIAGNOSIS: Diaphragmatic hiatal hernia OPERATION: Esophagogastroduodenoscopy SURGEON: Kamala Vallecillo MD ANESTHESIA: MAC. INDICATIONS: The patient is a 88-year-old female who presents with gastrointestinal bleeding. Benefits and risks of the procedure were described. Informed consent was obtained. DESCRIPTION: The patient was brought into the endoscopy suite and laid in the left lateral decubitus position. An Olympus gastroscope was passed along the posterior oropharynx down to the distal esophagus where the squamocolumnar junction was encountered at 34 cm from the incisors. The stomach was entered and no bile reflux was found. Additional findings are listed below. The first through third portion of the duodenum was examined and unremarkable. Retroflexion of the scope confirmed Hill grade 4 lower esophageal valve. The squamocolumnar junction demonstrated LA grade A erosive esophagitis. The stomach was desufflated. The patient tolerated the procedure well. FINDINGS: Squamocolumnar junction 34 cm from the incisors. Diaphragmatic hiatus at 39 cm. Hiatal hernia, 5 cm Hill grade 4 lower esophageal valve. LA grade A erosive esophagitis. No active duodenitis. No stigmata of bleeding RECOMMENDATIONS: 1. Diet as tolerated 2. Upper endoscopy as needed 3. Colonoscopy advised
--- NOTE | 2024-02-06 08:39 | P.PCN ---
Date of Procedure: 02/06/24 Description of Procedure: PREOPERATIVE DIAGNOSIS: Gastrointestinal bleeding Anticoagulant use POSTOPERATIVE DIAGNOSIS: Tubular adenoma ileocecal Tubular adenoma ascending colon Sigmoid diverticulosis Internal hemorrhoids, grade 2 OPERATION: Colonoscopy to the ileocecal valve and appendiceal orifice, cecum Colonoscopy with hot snare polypectomy Colonoscopy with ablation of polyp SURGEON: Kamala Vallecillo MD. ANESTHESIA: MAC. INDICATIONS: The patient is an 88-year-old female who presents gastrointestinal bleed. Benefits and risks were described and informed consent was obtained. DESCRIPTION OF PROCEDURE: The patient had undergone repair of prep. The patient had been brought into the operating room and laid in the left lateral decubitus position. After adequate intravenous sedation, the rectum was examined with 2% lidocaine jelly. External hemorrhoids were encountered. The rectal tone was within normal limits. No lesions were palpated in the rectal vault. An Olympus colonoscope was advanced until the cecum, ileocecal valve and appendiceal orifice were clearly viewed. The prep was good. Sigmoid diverticulosis was encountered. Colonic polyps were found and removed. No evidence of focal colitis was found. Retroflexion of the scope demonstrated grade 2 internal hemorrhoids without active bleeding or inflammation. The colon was desufflated. The patient had tolerated the procedure well. Withdrawal time was over 6 minutes. FINDINGS: Aronchick preparation quality scale 1+ (1-5) Internal hemorrhoids, grade 3 External hemorrhoids, grade 3. No arteriovenous malformations. Sigmoid diverticulosis Ablation of 2 mm ileocecal valve polyp Removal of 2 polyps: - Snare polypectomy ascending colon x 2, 5 mm and 8 mm tubulovillous adenoma. No focal colitis. RECOMMENDATIONS: Repeat colonoscopy 3 years, 2026 Due to diverticulosis, patient has risk of bleeding. Caution with anti coagulants advised Plan - Discharge Summary Discharge Rx Participant: No New Discharge Prescriptions: No Action Aspirin 81 mg PO HS Immunity Probiotic 1 tab PO DAILY Multivitamins, Thera [Multivitamin (formulary)] 1 tab PO DAILY Metoprolol Tartrate [Lopressor] 25 mg PO BID Propylene Glycol [Systane Complete] 1 drop BOTH EYES HS Vitamin B-12 (Unknown Strength) 1 dose PO HS Apixaban [Eliquis] 5 mg PO BID Discharge Medication List Aspirin 81 mg PO HS 05/21/15 [History] Apixaban [Eliquis] 5 mg PO BID 02/02/24 [History] Immunity Probiotic 1 tab PO DAILY 02/02/24 [History] Metoprolol Tartrate [Lopressor] 25 mg PO BID 02/02/24 [History] Multivitamins, Thera [Multivitamin (formulary)] 1 tab PO DAILY 02/02/24 [History] Propylene Glycol [Systane Complete] 1 drop BOTH EYES HS 02/02/24 [History] Vitamin B-12 (Unknown Strength) 1 dose PO HS 02/02/24 [History] Follow up Appointment(s)/Referral(s): Antwon Olson MD [Primary Care Provider] - 1-2 days [facility] Visiting Nurse, [NON-STAFF] -
[2024-02-06 10:21] LABS: African American GFR (CKD) 68 (>60 ml/min/1.73 sqM); Anion Gap 7 mmol/L; Blood Urea Nitrogen 13 mg/dL (7-17); Calcium 8.6 mg/dL (8.4-10.2); Carbon Dioxide 21 mmol/L (22-30); Chloride 113 mmol/L (98-107); Glucose 97 mg/dL (74-99); Non-African American GFR(CKD) 59 (>60 ml/min/1.73 sqM); Potassium 3.8 mmol/L (3.5-5.1); Sodium 141 mmol/L (137-145)
[2024-02-06 10:39] LABS: Basophils % (A) 1 %; Eosinophils # (A) 0.3 k/uL (0-0.7); Eosinophils % (A) 5 %; HCT 26.5 % (34.0-46.0); HGB 8.8 gm/dL (11.4-16.0); Lymphocytes # (A) 1.3 k/uL (1.0-4.8); Lymphocytes % (A) 22 %; MCH 31.8 pg (25.0-35.0); MCHC 33.2 g/dL (31.0-37.0); MCV 95.9 fL (80.0-100.0); Mean Platelet Volume 9.7; Monocytes # (A) 0.4 k/uL (0-1.0); Monocytes % (A) 6 %; Neutrophils # (A) 3.8 k/uL (1.3-7.7); Neutrophils % (A) 66 %; Platelet Count 176 k/uL (150-450); RBC 2.76 m/uL (3.80-5.40); RDW 15.2 % (11.5-15.5); WBC 5.8 k/uL (3.8-10.6)
[2024-02-06 12:12] VITALS: BP 147/73; PULSE 78
--- NOTE | 2024-02-06 12:56 | P.DS ---
Providers Date of admission: 02/02/24 18:20 Expected date of discharge: 02/06/24 Attending physician: Jesus Alberto Rabago Consults: 02/02/24 23:17 Consult Physician Routine Consulting Provider: Sandor Covington Consult Reason/Comments: Positive trops Do you want consulting provider notified?: Yes, Notify in am 02/03/24 09:36 Consult Physician Routine Consulting Provider: Kamala Vallecillo Consult Reason/Comments: GI bleed Do you want consulting provider notified?: Yes Primary care physician: Antwon Olson [facility] Course: Final diagnoses Possible acute GI bleed, melena stools, midsternal nonradiating chest pressure, and anemia, in a patient anticoagulated on Eliquis ,aspirin and taking Motrin PM nightly. Status post EGD and colonoscopy reporting sigmoid diverticulosis ,int ernal and external hemorrhoids grade 3, erosive esophagitis, diaphragmatic hiatus, no active duodenitis, no active bleed Acute anemia, secondary to the above, workup in progress Dehydration secondary to all the above Elevated troponins, possible type II IN related to anemia Acute metabolic encephalopathy secondary to the above, possible mild underlying dementia Permanent atrial fibrillation Valvular heart disease History of TAVR Nonischemic cardiomyopathy EF 45% Hypertension Pulmonary hypertension Hospital course: This is an 88-year-old female with past medical history significant for valvular heart disease, TAVR, prosthetic aortic valve, permanent atrial fibrillation on Eliquis, aspirin, pulmonary hypertension, hypertension, former nicotine dependence of 15 years, glaucoma with retinal and laser surgical repair, gait dysfunction, uses a cane and multiple other medical issues presented to the ER with complaints of black stools. Reports black stools initiated on Tuesday accompanied by midsternal chest pressure-possibly mid epigastric, nonradiating, relieved by rubbing her hand across the area. Denies abdominal pain or cramping. Denies lightheadedness, dizziness or focal deficits. Denies prior history of ulcers. Reports she has been taking Motrin PM nightly for sleep. EKG reported atrial fibrillation with controlled ventricular rate, troponins 0.097, 0.112, 0.086. proBNP 2350 .chest x-ray reported no acute process. Lactic acid 3.2, repeat level 1.4. afebrile, normal WBC. On admission hemoglobin 8.7, platelets 210, currently decreased to 7.3, 161. INR 1.2. Electrolytes within normal limits, bicarb 18, BUN 53, creatinine 0.88. RN reports that patient was very agitated this morning, pulled out her IV, threatening to call the police on her. Family called in for support. February 04, 2024: Patient is here for GI bleed. She been off Eliquis since February 01. She was seen in the office originally complaining of black stool, confirmed with Hemoccult. She was dizzy and lightheaded. At that point she was sent emergency room. Found to have hemoglobin 8.4. She also had elevated troponins. Was admitted and seen by cardiology. Aspirin is also discontinued. She is on pantoprazole now. She had a notable confusion and staff is concerned about underlying dementia. She was started on donezepil as well 1 day ago. She seems to be tolerating this. Cardiology had seen her addressing her abnormal troponins, TAVR history, atrial fibrillation, and agree with discontinuation of aspirin and Eliquis. They believe she might of had a type II IN from anemia. They are following. General surgery seen her and they are planning EGD tomorrow with possible biopsies. Patient is tolerating clears. She has not had a bowel movement. She denies any chest pains pressures or shortness of breath at rest at this time. He does get short of breath with exertion. February 05, 2024: Patient is reevaluated for her GI bleeding. She remains off Eliquis and aspirin. General surgery is planning EGD colonoscopy tomorrow. Delayed due to the lack of operating room availability today. Crystal denies any complaints other than some slight dizziness when she gets up. She is using a walker to ambulate today. Vitals remained stable. Blood pressure was somewhat elevated this morning. Labs are still pending for today. Patient does report having a bowel movement this morning that was brownish-black. Status post EGD and colonoscopy reporting internal and external hemorrhoids grade 3, no AV malformations, sigmoid diverticulosis, ablation of 2 mm ileocecal valve polyps, removal of 2 polyps-snare polypectomy ascending colon x 2 5 mm and 8 mm tubovillous adenoma, no focal colitis. General surgery recommended anticoagulation of Eliquis and aspirin may resume as early as tomorrow. Stagger anticoagulation, Eliquis will resume on this 02/10/2024 and aspirin on 02/17/24. Hemoglobin 8.8, platelets 176, renal function stable. Patient will be discharged home today in a stable condition with guarded prognosis pending final DC recommendations/anticoagulation and clearance as per cardiology. The impression and plan of care has been dictated as directed. : I performed a history and examination of this patient, discussed the same with the dictator. I agree with the dictator's note ,documented as a scribe. Any additional findings or plans will be noted. Patient Condition at Discharge: Stable Plan - Discharge Summary Discharge Rx Participant: No New Discharge Prescriptions: New Donepezil [Aricept] 5 mg PO HS #30 tab Pantoprazole [Protonix] 40 mg PO DAILY #30 tab Continue Immunity Probiotic 1 tab PO DAILY Multivitamins, Thera [Multivitamin (formulary)] 1 tab PO DAILY Metoprolol Tartrate [Lopressor] 25 mg PO BID Propylene Glycol [Systane Complete] 1 drop BOTH EYES HS Aspirin 81 mg PO HS #0 Vitamin B-12 (Unknown Strength) 1 dose PO HS Apixaban [Eliquis] 5 mg PO BID #0 Discharge Medication List Immunity Probiotic 1 tab PO DAILY 02/02/24 [History] Metoprolol Tartrate [Lopressor] 25 mg PO BID 02/02/24 [History] Multivitamins, Thera [Multivitamin (formulary)] 1 tab PO DAILY 02/02/24 [History] Propylene Glycol [Systane Complete] 1 drop BOTH EYES HS 02/02/24 [History] Vitamin B-12 (Unknown Strength) 1 dose PO HS 02/02/24 [History] Apixaban [Eliquis] 5 mg PO BID #0 02/06/24 [Rx] Aspirin 81 mg PO HS #0 02/06/24 [Rx] Donepezil [Aricept] 5 mg PO HS #30 tab 02/06/24 [Rx] Pantoprazole [Protonix] 40 mg PO DAILY #30 tab 02/06/24 [Rx] Follow up Appointment(s)/Referral(s): Sandor Covington MD [STAFF PHYSICIAN] - 1 Week (Spoke to reconditioning associatePk. Office will call with appointment time) Antwon Olson MD [Primary Care Provider] - 02/08/24 3:00 pm (Tuesday) [facility] Visiting Nurse, [NON-STAFF] - Ambulatory/Diagnostic Orders: Complete Blood Count w/diff [LAB.AMB] Time Frame: 3 Days, Location: None Selected Patient Instructions/Handouts: Diverticulosis (DC), Low Fiber Diet (DC) Discharge Disposition: HOME WITH HOME HEALTH SERVICES
--- NOTE | 2024-02-08 06:40 | CDI ---
Documentation Clarification Form Date: 02/08/24 From: Madeleine Casillas Admit Date: 02/02/2024 06:20:00 PM Patient Name: Mari Arboleda I Visit Number: [id number] Discharge Date: 02/06/2024 02:38:00 PM ATTENTION: The Clinical Documentation Specialists (CDI) and [facility] Coding Staff appreciate your assistance in clarifying documentation. Please respond to the clarification below the line at the bottom and electronically sign. The CDI & [facility] Coding staff will review the response and follow-up if needed. Please note: Queries are made part of the Legal Health Record. If you have any questions, please contact the author of this message via ITS. Dr. Antwon Olson, GI bleed is documented in the H&P, PNs, consult, procedure notes and DS. Additional clarification regarding the etiology of the GI bleed is requested. History/risk factors: Permanent atrial fibrillation, non-ischemic cardiomyopathy, hypertensive heart disease wo heart failure, dementia, pulmonary hypertension, s/p TAVR Clinical Indicators: Presents with rectal bleeding, dark stools for 2 days prior to admission. EGD/colonoscopy performed and findings: hiatal hernia, erosive esophagitis, internal & external hemorrhoids grade 3, sigmoid diverticulosis, ascending & ileocecal tubulovilloous adenoma Labs: HGB/HCT: 7.3/22.7 (02/02), lactic acid 3.2 (02/01) Treatment: EGD/colonoscopy Medication: Home meds: Eliquis 5 mg BID, Aspirin 81 mg HS and Motrin PM nightly Please clarify the etiology of the GI bleed, if known: [ ] GIB due to esophageal erosion [ ] GIB due to diverticular disease [ ] GIB due to hemorrhagic disorder due to circulating anticoagulants [ X ] GIB, etiology unknown [ ] Other, please specify [ ] Unable to determine MTDD
--- NOTE | 2024-02-08 07:00 | CDI ---
Documentation Clarification Form Date: 02/08/24 From: Madeleine Casillas Admit Date: 02/02/2024 06:20:00 PM Patient Name: Mari Arboleda I Visit Number: [id number] Discharge Date: 02/06/2024 02:38:00 PM ATTENTION: The Clinical Documentation Specialists (CDI) and [facility] Coding Staff appreciate your assistance in clarifying documentation. Please respond to the clarification below the line at the bottom and electronically sign. The CDI & [facility] Coding staff will review the response and follow-up if needed. Please note: Queries are made part of the Legal Health Record. If you have any questions, please contact the author of this message via ITS. Dr. Antwon Olson, Unspecified anemia is documented in the ED Note, H&P, consults, PNs and DS. Additional specificity regarding the type and acuity] of anemia is requested. History/Risk Factors: Permanent atrial fibrillation, non-ischemic cardiomyopathy, hypertensive heart disease wo heart failure, dementia, pulmonary hypertension, s/p TAVR Clinical indicators: Possible acute GI bleed, melena stools, midsternal nonradiating chest pressure, andanemia, in a patient anticoagulated on Eliquis, aspirin and taking Motrin PM nightly. Elevated troponins, possible type II HI related toanemia. Hemoglobin [02/01-02/05]: 8.7, 8.4, 7.3, 7.9, 8.6, 9.4, 8.8 Hematocrit [02/01-02/05]: 27.1, 25.7, 22.7, 24.0, 27.6, 26.0, 26.5 Treatment: Continue on above meds, workup in progress. Please clarify the type and acuity of anemia: [ X ] Acute blood loss anemia [ ] Acute on chronic blood loss anemia [ ] Chronic blood loss anemia [ ] Iron deficiency anemia [ ] Drug induced anemia [ ] Nutritional anemia [ ] Unable to determine [ ] Other, please specify ANTONIOD
== END 2024-02-06 14:38 | disposition home health service (06) | DRG 377 ==
LOC: EC 14:59 → 3SCARD 18:20
PROVIDERS: ADMIT Family Medicine; ATTEND Family Medicine
PROC: 05HC33Z Insertion of Infusion Device into Left Basilic Vein, Percutaneous Approach (ICD-10-PCS; 2024-02-03)
PROC: 0DJ08ZZ Inspection of Upper Intestinal Tract, Via Natural or Artificial Opening Endoscopic (ICD-10-PCS; principal; 2024-02-06 07:30)
PROC: 0DBK8ZX Excision of Ascending Colon, Via Natural or Artificial Opening Endoscopic, Diagnostic (ICD-10-PCS; 2024-02-06 07:30)
PROC: 0D5C8ZZ Destruction of Ileocecal Valve, Via Natural or Artificial Opening Endoscopic (ICD-10-PCS; 2024-02-06 07:30)
DX: K92.2 Gastrointestinal hemorrhage, unspecified (principal); G93.41 Metabolic encephalopathy; I21.A1 Myocardial infarction type 2; F03.911 Unspecified dementia, unspecified severity, with agitation; K22.10 Ulcer of esophagus without bleeding; I48.21 Permanent atrial fibrillation; I42.8 Other cardiomyopathies; D62 Acute posthemorrhagic anemia; I27.20 Pulmonary hypertension, unspecified; E86.0 Dehydration; I11.9 Hypertensive heart disease without heart failure; I69.398 Other sequelae of cerebral infarction; Z95.2 Presence of prosthetic heart valve; K57.30 Diverticulosis of large intestine without perforation or abscess without bleeding; D12.0 Benign neoplasm of cecum; D12.2 Benign neoplasm of ascending colon; K64.2 Third degree hemorrhoids; H53.9 Unspecified visual disturbance; K44.9 Diaphragmatic hernia without obstruction or gangrene; H40.9 Unspecified glaucoma; R26.9 Unspecified abnormalities of gait and mobility; Z79.01 Long term (current) use of anticoagulants; Z79.82 Long term (current) use of aspirin; Z79.899 Other long term (current) drug therapy; Z87.891 Personal history of nicotine dependence; Z85.828 Personal history of other malignant neoplasm of skin; Z86.19 Personal history of other infectious and parasitic diseases; Z88.1 Allergy status to other antibiotic agents; Z88.5 Allergy status to narcotic agent; Z88.0 Allergy status to penicillin; Z88.2 Allergy status to sulfonamides; Z88.8 Allergy status to other drugs, medicaments and biological substances
CPT/HCPCS: 36410; 36415; 43235; 45385; 71046; 76937; 80048; 80053; 83605; 83735; 83880; 84484; 85025; 85610; 85730; 86850; 86900; 86901; 88305; 96360; 99285